=== PATIENT | male | born 1950 | race Caucasian/White ===

== ENCOUNTER 2021-12-12 15:42 | Emergency (ER) | payer MEDICARE, OTHER, SELFPAY ==
[2021-12-12 15:43] VITALS: BP 122/69; PULSE 74; RESP 16; TEMP 37; O2SAT 98; BMI 23.6
--- NOTE | 2021-12-12 16:17 | EX.ED.DYSGE1 ---
HPI History of Present Illness Chief Complaint: Confusion Narrative Narrative: 71-year-old male presenting with confusion. He is a cystic by his daughter who is a physician who states that she is currently caring for him at home. He has a history of hepatocellular carcinoma and sees Dr. Lopez. Patient had recent ablations to the liver and has acutely been decompensating. He is on immunotherapy and not on chemotherapy. Patient's daughter reports that he has been more confused and she is unsure if he is taking his lactulose. Is a history of high ammonia level at 120. At last check it was 56. Patient's daughter states that he has not had any history of trauma or falls. She states he seems confused and is walking around somewhat like a zombie. [facility] Medical History (Updated 12/12/21 @ 16:51 by Hannah Reece RN) Anasarca Ascites Cirrhosis Diabetes Hepatic encephalopathy Liver cancer Home Medications cholecalciferol (vitamin D3) [Vitamin D3] 5,000 unit PO DAILY 10/22/13 [History Last Taken Unknown] glimepiride 2 mg PO DAILY 10/22/13 [History Last Taken Unknown] empagliflozin [Jardiance] 25 mg PO DAILY 12/12/21 [History Last Taken Unknown] finasteride 5 mg PO DAILY 12/12/21 [History Last Taken Unknown] furosemide [Lasix] 40 mg PO DAILY 12/12/21 [History Last Taken Unknown] hydrocodone-acetaminophen [[place]] 1 tab PO BID PRN 12/12/21 [History Last Taken Unknown] lactulose 20 g PO BID 12/12/21 [History Last Taken Unknown] loperamide 2 mg PO TID 12/12/21 [History Last Taken Unknown] multivitamin 1 tab PO DAILY 12/12/21 [History Last Taken Unknown] omeprazole 40 mg PO DAILY 12/12/21 [History Last Taken Unknown] potassium chloride 20 meq PO DAILY 12/12/21 [History Last Taken Unknown] spironolactone [Aldactone] 100 mg PO DAILY 12/12/21 [History Last Taken Unknown] temazepam 15 mg PO QHS PRN 12/12/21 [History Last Taken Unknown] Allergy/AdvReac Type Severity Reaction Status Date / Time pentazocine lactate Allergy Shortness Verified 12/12/21 15:43 [From Jakob] of breath Social History Smoking Status: Never smoker ROS ROS ED Review of Systems ROS Unobtainable: due to encephalopathy EXAM Physical Exam Const Vital Signs: 12/12/21 15:43 12/12/21 16:36 12/12/21 18:14 Temperature 98.6 F Temperature Source Temporal Pulse Rate 74 65 70 Respiratory Rate 16 18 13 Blood Pressure 122/69 H 116/63 113/62 Blood Pressure Mean 86 80 79 Pulse Ox 98 99 97 Oxygen Delivery Method Room Air Room Air Room Air 12/12/21 19:07 Temperature 97.9 F Temperature Source Temporal Pulse Rate 75 Respiratory Rate 24 H Blood Pressure 110/64 Blood Pressure Mean 79 Pulse Ox 97 Oxygen Delivery Method Room Air Positive well nourished General Appearance ED: NAD; Negative for pallor HEENT Reports moist mucous membranes Negative for trauma Eyes PERRL General Eye ED: Negative for pale conjunctiva or scleral icterus Resp normal respiratory effort and clear to auscultation bilaterally Cardio regular rate and regular rhythm Neuro Sensorium / Orientation: alert Psych mental status grossly normal Skin no wounds and No skin turgor normal General Skin Exam: Negative for jaundice or pallor MDM MDM MDM Narrative Medical decision making narrative: 71-year-old male presenting with altered mental status. His daughter is concerned that he is not taking his lactulose. She has a prescription for this. I did obtain lab work and his CBC is within normal limits. Renal function and electrolytes appear to be stable although he has slight prerenal azotemia. Total bilirubin is elevated at 2.80 however this is lower than his previous of 4.20. His other LFTs appear to be stable or decreasing. His ammonia level is 108.0 and last check of this was 12/07/2021 where it was 56. Patient is given a dose of lactulose here in the ED but initially it was unable to be given orally. On reevaluation the patient appears to be more alert and awake. His daughter is back in the room. We discussed lab work and treatment. She requests a dose of oral lactulose to see if he can swallow and if he can take this he will be discharged home and she will care for him. This was given and the patient tolerated well. On reevaluation he appears to be more alert and awake. At this point she feels safe to take him home. Given return precautions. Impression: 1. Hepatic encephalopathy Lab Data Attestation: I reviewed the patient's lab results. Labs: Laboratory Results - last 24 hr 12/12/21 12/12/21 12/12/21 16:35 16:35 16:35 WBC 5.4 RBC 5.49 Hgb 17.4 H Hct 51.9 MCV 94.5 H MCH 31.7 MCHC 33.5 RDW Std Deviation 58.8 H RDW Coeff of Breana 17.0 H Plt Count 137 L MPV 9.9 Immature Gran % (Auto) 0.200 Neut % (Auto) 74.1 H Lymph % (Auto) 10.1 L [place] % (Auto) 11.2 H Eos % (Auto) 3.5 Baso % (Auto) 0.9 Absolute Neuts (auto) 4.0 Absolute Lymphs (auto) 0.55 L Nucleated RBC % 0 Differential Comment SCANNED Sodium 137 Potassium 4.5 Chloride 100 Carbon Dioxide 31.0 Anion Gap 6 BUN 28 H Creatinine 1.17 Estim Creat Clear Calc 61.72 Est GFR (MDRD) Af Amer 79 Est GFR (MDRD) Non-Af 65 BUN/Creatinine Ratio 23.9 H Glucose 154 H Calcium 8.7 Total Bilirubin 2.80 H Direct Bilirubin 1.60 H AST 66 H ALT 57 Alkaline Phosphatase 352 H Ammonia 108.0 H Total Protein 7.3 Albumin 2.5 L Globulin 4.8 H Lipase 225 Urine Color Urine Clarity Urine pH Ur Specific [place] Urine Protein Urine Glucose (UA) Urine Ketones Urine Occult Blood Urine Nitrite Urine Bilirubin Urine Urobilinogen Ur Leukocyte Esterase Urine RBC Urine WBC Ur Squamous Epith Cells Urine Bacteria Urine Mucus 12/12/21 17:50 WBC RBC Hgb Hct MCV MCH MCHC RDW Std Deviation RDW Coeff of Breana Plt Count MPV Immature Gran % (Auto) Neut % (Auto) Lymph % (Auto) [place] % (Auto) Eos % (Auto) Baso % (Auto) Absolute Neuts (auto) Absolute Lymphs (auto) Nucleated RBC % Differential Comment Sodium Potassium Chloride Carbon Dioxide Anion Gap BUN Creatinine Estim Creat Clear Calc Est GFR (MDRD) Af Amer Est GFR (MDRD) Non-Af BUN/Creatinine Ratio Glucose Calcium Total Bilirubin Direct Bilirubin AST ALT Alkaline Phosphatase Ammonia Total Protein Albumin Globulin Lipase Urine Color Yellow Urine Clarity Clear Urine pH 6.5 Ur Specific [place] 1.010 Urine Protein Negative Urine Glucose (UA) Normal Urine Ketones 5 H Urine Occult Blood 25 H Urine Nitrite Negative Urine Bilirubin Negative Urine Urobilinogen 4 H Ur Leukocyte Esterase Negative Urine RBC 0 SEEN Urine WBC 0 SEEN Ur Squamous Epith Cells 0 SEEN Urine Bacteria 0 SEEN Urine Mucus 0 SEEN Discharge Plan Triage Chief Complaint: Confusion ED Provider: Antonio Marion Dx/Rx/DC Orders Instructions: Hepatic Encephalopathy Prescriptions: No Action glimepiride 4 MG tablet 2 mg PO DAILY RF: 0 cholecalciferol (vitamin D3) [Vitamin D3] 2,000 UNIT tablet 5,000 unit PO DAILY RF: 0 multivitamin Tablet 1 tab PO DAILY RF: 0 furosemide [Lasix] 40 mg Tablet 40 mg PO DAILY RF: 0 lactulose 10 gram/15 mL Syrup 20 g PO BID RF: 0 loperamide 2 mg Capsule 2 mg PO TID RF: 0 hydrocodone-acetaminophen [[place]] 5-325 mg Tablet 1 tab PO BID PRN (Reason: Pain) RF: 0 spironolactone [Aldactone] 100 mg Tablet 100 mg PO DAILY RF: 0 omeprazole 40 mg Capsule,Delayed Release(Dr/Ec) 40 mg PO DAILY RF: 0 temazepam 15 mg Capsule 15 mg PO QHS PRN (Reason: Sleep) RF: 0 finasteride 5 mg tablet 5 mg PO DAILY RF: 0 potassium chloride 20 mEq Tablet Extended Release 20 meq PO DAILY RF: 0 Jardiance 25 mg Tablet 25 mg PO DAILY RF: 0 Primary Care Provider: Chandana Kenny Referrals: Jaswinder Lopez DO [STAFF PHYSICIAN] - As Needed Chandana Kenny DO [Primary Care Provider] - Disposition Disposition: Home, Self Care Discharge Date/Time: 12/12/21 19:54
[2021-12-12 16:36] VITALS: BP 116/63; PULSE 65; RESP 18; O2SAT 99
[2021-12-12 16:49] LABS: Absolute Lymphocyte Count 0.55 X10^3/uL (0.83-4.51); Basophil# 0.05 X10^3/uL; Basophil% 0.9 % (0-1); Eosinophil# 0.19 X10^3/uL; Eosinophils% 3.5 % (0-5); Hematocrit 51.9 % (40-54); Hemoglobin 17.4 g/dL (13.0-16.5); Lymphocyte # 0.55 X10^3/ul (0.83-4.51); Lymphocyte % 10.1 % (19-41); Mean Corp Hgb Conc 33.5 g/dL (32-36); Mean Corpuscular Hgb 31.7 pg (27.0-32.0); Mean Corpuscular Volume 94.5 fL (80-94); Mean Platelet Vol. 9.9 fl (6.2-12.0); Monocyte# 0.61 X10^3/uL; Monocyte% 11.2 % (0-10); NRBC Flagged by Analyzer 0 % (0-5); Neutrophil # 4.03 X10^3/uL (2.7-7.7); Neutrophil % 74.1 % (47-70); POSITIVE DIFFERENTIAL YES; Platelet Count 137 K/mm3 (150-450); RBC Distribution Width SD 58.8 fl (35.1-43.9); Red Blood Count 5.49 M/mm3 (4.6-6.2); White Blood Count 5.4 K/mm3 (4.4-11.0)
[2021-12-12 16:51] LABS: Differential Indicated SCAN CRITERIA MET
[2021-12-12 17:00] LABS: AST(SGOT) 66 U/L (15-37); Alanine Aminotransfer ALT/SGPT 57 U/L (16-61); Albumin, Serum 2.5 g/dL (3.2-5.0); Alkaline Phosphatase 352 U/L (45-117); Anion Gap 6 (5-15); BUN 28 mg/dL (7-18); BUN/Creat Ratio 23.9 RATIO (10-20); Calcium,Total 8.7 mg/dL (8.5-10.1); Chloride 100 mmol/L (98-107); Creatinine, Serum 1.17 mg/dL (0.70-1.30); EST Glomerular Filtration Rate 65 mL/min (>60); Est Glom Filt Rate - Afr Amer 79 mL/min (>60); Estimated Creatinine Clearance 61.72 ml/min; Globulin 4.8 g/dL (2.2-4.2); Glucose 154 mg/dL (74-106); Lipase 225 U/L (73-393); Potassium 4.5 mmol/L (3.5-5.1); Protein, Total 7.3 g/dL (6.4-8.2); Sodium Level 137 mmol/L (136-145)
[2021-12-12 17:10] LABS: Differential Comment SCANNED
[2021-12-12] MEDS: 0.9% Normal Saline 1,000 ML 999 ML IV (17:57)
[2021-12-12 17:58] LABS: Bacteria 0 SEEN /hpf (None Seen); Mucous, Urine 0 SEEN /hpf (<or=2+); Red Blood Cells-Urine 0 SEEN /hpf (0-5); Squamous Epithelial Cells - UA 0 SEEN /hpf (0-5); White Blood Cells 0 SEEN /hpf (0-5)
--- NOTE | 2021-12-12 18:05 | ED.RN ---
RN AT THE BEDSIDE TO CATH PATIENT. PT HARDLY WITHDREW FROM PAIN RELATED TO STRAIGHT CATH PROCEDURE. PT HAS LACTULOSE ORDERED TO BE GIVEN ORALLY. RN INFORMED DR GRAHAM THAT PT WILL BE UNABLE TO TAKE MEDICATION ORALLY. DR GRAHAM AGREEABLE TO ADMINISTER LACTULOSE RECTALLY.
[2021-12-12] MEDS: Lactulose 20 GM/30 ML UDC PO ×2 (18:06→19:34)
[2021-12-12 18:11] LABS: Color, Urine Yellow (Yellow); Glucose, Dipstick Normal (Normal); Ketone-Dipstick 5 mg/dl (Negative); Leukocyte Esterase-Dipstick Negative /ul (Negative); Nitrite-Dipstick Negative (Negative); Occult Blood-Urine 25 /ul (Negative); Protein-Dipstick Negative (Negative); Urine Bilirubin Dipstick Negative (Negative); Urine Clarity Clear (Clear); Urine Urobilinogen 4 mg/dl (Normal); Urine pH 6.5 (5.0 - 8.0)
[2021-12-12 18:14] VITALS: BP 113/62; PULSE 70; RESP 13; O2SAT 97
[2021-12-12 19:07] VITALS: BP 110/64; PULSE 75; RESP 24; TEMP 36.6; O2SAT 97
[2021-12-12 19:48] VITALS: BP 113/65; PULSE 74; RESP 17
== END 2021-12-12 19:54 | disposition home or self-care (01) ==
PROVIDERS: Emergency Provider Student in an Organized Health Care Education/Training Program; PCP Family Medicine; Visit Provider Student in an Organized Health Care Education/Training Program
DX: K72.90 Hepatic failure, unspecified without coma (principal); C22.0 Liver cell carcinoma; E11.9 Type 2 diabetes mellitus without complications; Z79.84 Long term (current) use of oral hypoglycemic drugs; Z79.899 Other long term (current) drug therapy
CPT/HCPCS: 80048; 80076; 81001; 82140; 83690; 85025; 96360; 99284; J7030; A4216

== ENCOUNTER 2022-01-28 10:47 | Inpatient (IN) | payer MEDICARE, OTHER, SELFPAY ==
[2022-01-28] VITALS (12 sets, daily range): BP systolic 104–124; BP diastolic 50–63; PULSE 61–76; RESP 18–24; TEMP 36–36.9; O2SAT 95–98; BMI 24.4
--- NOTE | 2022-01-28 11:12 | EKG12_ITS ---
Test Reason : NAUSEA Blood Pressure : / mmHG Vent. Rate : 064 BPM Atrial Rate : 064 BPM P-R Int : 272 ms QRS Dur : 088 ms QT Int : 454 ms P-R-T Axes : 076 -55 050 degrees QTc Int : 468 ms Sinus rhythm with sinus arrhythmia with 1st degree A-V block Left axis deviation Inferior infarct , age undetermined Abnormal ECG Confirmed by MAC MONDRAGON, PATRICE ([id number]), editorial project manager BINA VIDALES ([id number]) on 01/31/2022 1:53:18 PM Referred By: CHRISTINA Confirmed By:PATRICE WATTS MD
--- NOTE | 2022-01-28 11:13 | EDS_ITS ---
HPI History of Present Illness Chief Complaint: Abd Pain Narrative Narrative: Patient has a history of hepatocellular carcinoma that is multifocal, he had 2 chemoembolization procedures at [facility] and after the second 1 he developed cirrhosis and has been on immunotherapy chemo since then. His bilirubin usually is around 2-4, today it was 21 and systolic blood pressure was 90 in the office with a white blood count of 15,000. He has been feeling very malaised and weak in the past week, he has had vomiting and diarrhea and intermittent right lower quadrant abdominal pain, and his oncologist sent him in out of concern for sepsis, SBP, and/or dehydration. He is not having abdominal pain at this time of evaluation. He states he has had a cough recently but no dyspnea. [facility] Medical History Anasarca Ascites Cirrhosis Diabetes Hepatic encephalopathy Liver cancer Home Medications finasteride 5 mg PO DAILY 12/12/21 [History Last Taken 01/27/22] furosemide [Lasix] 40 mg PO DAILY 12/12/21 [History Last Taken 01/27/22] hydrocodone-acetaminophen [[place]] 1 tab PO BID PRN 12/12/21 [History Last Taken 01/27/22] loperamide 2 mg PO TID 12/12/21 [History Last Taken 01/27/22] omeprazole 40 mg PO DAILY 12/12/21 [History Last Taken 01/27/22] potassium chloride 20 meq PO DAILY 12/12/21 [History Last Taken 01/27/22] spironolactone [Aldactone] 100 mg PO DAILY 12/12/21 [History Last Taken 01/27/22] temazepam 15 mg PO QHS PRN 12/12/21 [History Last Taken 01/27/22] lactulose 20 g PO BID 01/28/22 [History Last Taken 01/27/22] Allergy/AdvReac Type Severity Reaction Status Date / Time pentazocine lactate Allergy Shortness Verified 01/28/22 10:49 [From Jakob] of breath Social History Smoking Status: Former smoker ROS ROS ED Constitutional Constitutional ED: Reports fatigue and malaise; Denies chills or fever(s) Eyes Eyes: Denies change in vision or diplopia ENT ENT ED: Denies rhinorrhea or sore throat Cardiovascular Cardiovascular: Reports pedal edema and other Details: Lower extremity swelling no worse than usual ; Denies chest pain or palpitations Respiratory/Chest Respiratory/Chest: Reports cough; Denies dyspnea Gastrointestinal Gastrointestinal: Reports as per HPI, abdominal pain, diarrhea, nausea and vomiting; Denies hematemesis, hematochezia or melena Genitourinary Genitourinary ED: Denies dysuria or hematuria Musculoskeletal Musculoskeletal: Denies back pain or neck pain Integumentary Denies abscess or rash Neurologic Neurologic: Reports other Details: Occasionally confused, this has been since he has had cirrhosis, no different than usual in this past week ; Denies he adache(s), paresthesias or weakness Psychiatric Psychiatric: Denies anxiety or suicidal thoughts EXAM Physical Exam Const Vital Signs: 01/28/22 10:48 01/28/22 10:55 01/28/22 12:26 Temperature 96.8 F L 96.8 F L 97.8 F Temperature Source Temporal Temporal Oral Pulse Rate 76 76 Respiratory Rate 18 18 Blood Pressure 104/54 L 104/54 L Blood Pressure Mean 70 70 Pulse Ox 96 96 97 Oxygen Delivery Method Room Air Room Air Room Air 01/28/22 12:39 01/28/22 14:28 01/28/22 14:49 Temperature 97.8 F 97.6 F L 97.6 F L Temperature Source Oral Temporal Temporal Pulse Rate 61 68 70 Respiratory Rate 18 18 24 H Blood Pressure 107/50 L 118/63 124/58 H Blood Pressure Mean 69 81 80 Pulse Ox 95 96 98 Oxygen Delivery Method Room Air Room Air Room Air 01/28/22 15:01 Temperature 97.6 F L Temperature Source Temporal Pulse Rate 62 Respiratory Rate 19 H Blood Pressure 124/58 H Blood Pressure Mean 80 Pulse Ox 97 Oxygen Delivery Method Room Air Positive well nourished and well developed General Appearance ED: well developed and NAD HEENT Reports moist mucous membranes normocephalic and atraumatic Eyes PERRL and EOMs intact bilaterally General Eye ED: Yes scleral icterus Neck full ROM and supple Resp normal respiratory effort Resp Narrative: Inspiratory and expiratory wheezes right side more at the base. Occasional and expiratory wheeze on the left but for the most part clear. No rales or rhonchi. Cardio regular rate, regular rhythm and no murmurs GI non-tender GI Narrative: Mildly distended with a fluid wave, not tense. Benign otherwise. Auscultation: normoactive bowel sounds Palpation: soft Back/Spine no CVA tenderness General Back: other FROM Extremity normal to inspection General Extremety ED: Yes edema; Negative for pulses abnormal or tenderness General Extremity: edema bilateral lower extremity (Symmetric without calf tenderness) Details: mild; Negative for pulses abnormal Neuro oriented x3, CN's II-XII intact bilaterally and no sensory deficits noted Sensorium / Orientation: awake and alert Motor Exam: strength 5/5 throughout Skin no rashes or lesions noted and no wounds General Skin Exam: jaundice MDM MDM MDM Narrative Medical decision making narrative: Discussed pros and cons of paracentesis at the bedside under ultrasound guidance with he and significant other. All questions answered, he consents. He has had paracenteses in the past for withdrawing his ascites. Labs consistent with urinary tract infection, started on Rocephin 2 g after doing paracentesis see the procedure note. cell count on that fluid is pending at this time. Will admit. Discussed with hospitalist who is requesting CT imaging of the abdomen/pelvis at this time, that is obtained and it showed nothing unexpected given his history. Lab Data Attestation: I reviewed the patient's lab results. Labs: Laboratory Results - last 24 hr 01/28/22 01/28/22 01/28/22 11:25 11:25 11:25 WBC 14.3 H RBC 4.93 Hgb 15.4 Hct 44.8 MCV 90.9 MCH 31.2 MCHC 34.4 RDW Std Deviation 58.7 H RDW Coeff of Breana 18.0 H Plt Count 180 MPV 9.8 Immature Gran % (Auto) 0.600 Neut % (Auto) 85.5 H Lymph % (Auto) 3.6 L [place] % (Auto) 9.3 Eos % (Auto) 0.6 Baso % (Auto) 0.4 Absolute Neuts (auto) 12.2 H Absolute Lymphs (auto) 0.52 L Nucleated RBC % 0 Differential Comment Platelet Estimate ADEQUATE RBC Morphology NORM C+C PT 23.7 H INR 2.2 APTT 45.9 H Sodium 127 L Potassium 4.2 Chloride 92 L Carbon Dioxide 25.0 Anion Gap 10 BUN 35 H Creatinine 1.43 H Estim Creat Clear Calc 50.50 Est GFR (MDRD) Af Amer 62 Est GFR (MDRD) Non-Af 51 L BUN/Creatinine Ratio 24.5 H Glucose 107 H Lactic Acid Calcium 7.6 L Total Bilirubin 21.50 H* AST 133 H ALT 82 H Alkaline Phosphatase 299 H Ammonia Troponin I High Sens 5 Total Protein 6.1 L Albumin 1.7 L Globulin 4.4 H Albumin/Globulin Ratio 0.4 L Urine Color Urine Clarity Urine pH Ur Specific [place] Urine Protein Urine Glucose (UA) Urine Ketones Urine Occult Blood Urine Nitrite Urine Bilirubin Urine Urobilinogen Ur Leukocyte Esterase Urine RBC Urine WBC Ur Squamous Epith Cells Urine Bacteria Urine Mucus 01/28/22 01/28/22 01/28/22 11:25 11:25 12:18 WBC RBC Hgb Hct MCV MCH MCHC RDW Std Deviation RDW Coeff of Breana Plt Count MPV Immature Gran % (Auto) Neut % (Auto) Lymph % (Auto) [place] % (Auto) Eos % (Auto) Baso % (Auto) Absolute Neuts (auto) Absolute Lymphs (auto) Nucleated RBC % Differential Comment Platelet Estimate RBC Morphology PT INR APTT Sodium Potassium Chloride Carbon Dioxide Anion Gap BUN Creatinine Estim Creat Clear Calc Est GFR (MDRD) Af Amer Est GFR (MDRD) Non-Af BUN/Creatinine Ratio Glucose Lactic Acid 3.0 H* Calcium Total Bilirubin AST ALT Alkaline Phosphatase Ammonia 18.0 Troponin I High Sens Total Protein Albumin Globulin Albumin/Globulin Ratio Urine Color [place] Urine Clarity Sl. Cloudy Urine pH 6.0 Ur Specific [place] 1.015 Urine Protein 30 H Urine Glucose (UA) Normal Urine Ketones 5 H Urine Occult Blood 25 H Urine Nitrite Positive H Urine Bilirubin 6 H Urine Urobilinogen 8 H Ur Leukocyte Esterase 100 H Urine RBC 0-5 SEEN Urine WBC 5-10 SEEN Ur Squamous Epith Cells 10-25 SEEN Urine Bacteria 4+ Urine Mucus 0 SEEN 01/28/22 15:49 WBC RBC Hgb Hct MCV MCH MCHC RDW Std Deviation RDW Coeff of Breana Plt Count MPV Immature Gran % (Auto) Neut % (Auto) Lymph % (Auto) [place] % (Auto) Eos % (Auto) Baso % (Auto) Absolute Neuts (auto) Absolute Lymphs (auto) Nucleated RBC % Differential Comment Platelet Estimate RBC Morphology PT INR APTT Sodium Potassium Chloride Carbon Dioxide Anion Gap BUN Creatinine Estim Creat Clear Calc Est GFR (MDRD) Af Amer Est GFR (MDRD) Non-Af BUN/Creatinine Ratio Glucose Lactic Acid 2.8 H* Calcium Total Bilirubin AST ALT Alkaline Phosphatase Ammonia Troponin I High Sens Total Protein Albumin Globulin Albumin/Globulin Ratio Urine Color Urine Clarity Urine pH Ur Specific [place] Urine Protein Urine Glucose (UA) Urine Ketones Urine Occult Blood Urine Nitrite Urine Bilirubin Urine Urobilinogen Ur Leukocyte Esterase Urine RBC Urine WBC Ur Squamous Epith Cells Urine Bacteria Urine Mucus Radiography Diagnostic Testing: Clinical Impression(s) from Imaging Studies Chest X-Ray 01/28/22 11:20 IMPRESSION: No acute abnormality is seen. Electronically Signed: Jose Jerome MD at 11:56 EDT , Abdomen/Pelvis CT 01/28/22 14:44 IMPRESSION: Diffuse ascites. 1.2 cm x 2 cm pleural-based nodule in the lateral aspect of the left lower lobe with underlying atelectasis and/or scarring. Findings suggestive of cirrhosis of the liver with possible mass in the left lobe. Surgical anastomosis is seen in the region of the ascending colon. Underlying mass cannot be excluded. Electronically Signed: Jose Jerome MD at 15:35 EDT , Rhythm Strip Rhythm Strip: Sinus Rhythm Rate: 65 Ectopy: None EKG Initial EKG: Attestation: I personally reviewed and interpreted this EKG as follows: Interpretation: Sinus Rhythm, No Acute Injury Pattern and AV Block (1st deg) Comments: Anteroseptal inferior Q waves Prior: No Prior Procedures Other Procedures Procedure(s): Paracentesis: After informed consent, the abdomen was ultrasounded by myself to look for a pocket of fluid away from bowel, initially the best area appeared to be the left upper quadrant, so I prepped this with Betadine and placed 1 cc of local lidocaine with epinephrine 1%, however on reevaluation with ultrasound his colon appears to be in the way, and much closer to the peritoneum than it appeared to be prior so I did not attempt paracentesis in this area. Rather with further exploration with the ultrasound probe, even with changing the patient's position it appeared to be the best area was in the left lower quadrant. After local anesthetizing and prepped and draped in a sterile fashion with Betadine, sterile gloves were used, and I was able to place a 20-gauge IV catheter under ultrasound guidance into the pocket of fluid, upon withdrawing the needle there was clear yellow nonbloody fluid emanating from the catheter, I aspirated about 8 cc of this until it stopped. Placed a bandage, tolerated well no complications, fluid sent to lab for analysis. Discharge Plan Dx/Rx/DC Orders Clinical Impression: Sepsis, Acute UTI, LINDA (acute kidney injury), Hyperbilirubinemia, Hepatocellular carcinoma, Nausea vomiting and diarrhea Disposition [facility]position: [facility] Discharge Date/Time: 01/28/22 16:16
--- NOTE | 2022-01-28 11:20 | RAD_ITS ---
STUDY: X-RAY CHEST REASON FOR EXAM: Male, 71 years old. Cough TECHNIQUE: Single AP portable view of the chest. COMPARISON: None. FINDINGS: The lungs are clear and expanded. There is no demonstrated pleural abnormality. Normal size heart. Normal mediastinum and marlin. Normal visualized pulmonary arteries. There is atherosclerotic tortuosity of the aortic arch and descending thoracic aorta. There are diffuse degenerative changes of the visualized thoracic spine. Normal visualized ribs, clavicles, and shoulders. There is no demonstrated abnormality of the visualized soft tissue structures of the upper abdomen. RAD/Chest 1 View (Portable) IMPRESSION: No acute abnormality is seen. Electronically Signed: Jose Jerome MD at 11:56 EDT ,
[2022-01-28 11:38] LABS: Absolute Lymphocyte Count 0.52 X10^3/uL (0.83-4.51); Absolute Neutrophil Count 12.2 X10^3/uL (2.0-7.7); Basophil# 0.06 X10^3/uL; Basophil% 0.4 % (0-1); Eosinophil# 0.09 X10^3/uL; Eosinophils% 0.6 % (0-5); Hematocrit 44.8 % (40-54); Hemoglobin 15.4 g/dL (13.0-16.5); Lymphocyte # 0.52 X10^3/ul (0.83-4.51); Lymphocyte % 3.6 % (19-41); Mean Corp Hgb Conc 34.4 g/dL (32-36); Mean Corpuscular Hgb 31.2 pg (27.0-32.0); Mean Corpuscular Volume 90.9 fL (80-94); Mean Platelet Vol. 9.8 fl (6.2-12.0); Monocyte# 1.32 X10^3/uL; Monocyte% 9.3 % (0-10); NRBC Flagged by Analyzer 0 % (0-5); Neutrophil # 12.17 X10^3/uL (2.7-7.7); Neutrophil % 85.5 % (47-70); POSITIVE DIFFERENTIAL YES; Platelet Count 180 K/mm3 (150-450); RBC Distribution Width SD 58.7 fl (35.1-43.9); Red Blood Count 4.93 M/mm3 (4.6-6.2); White Blood Count 14.3 K/mm3 (4.4-11.0)
[2022-01-28 11:40] LABS: Differential Indicated SCAN CRITERIA MET
[2022-01-28 11:47] LABS: International Normalized Ratio 2.2; Prothrombin Time (Protime)PT. 23.7 SECONDS (11.7-14.9)
[2022-01-28 11:48] LABS: Partial Thromboplast Time 45.9 Seconds (24.1-36.2)
[2022-01-28 12:10] LABS: Platelet Estimate ADEQUATE (ADEQ)
[2022-01-28 12:11] LABS: Red Cell Morphology NORM C+C NORMAL (NORM C&C)
[2022-01-28 12:18] LABS: ALB/GLOB Ratio 0.4 RATIO (0.9-2.4); AST(SGOT) 133 U/L (15-37); Alanine Aminotransfer ALT/SGPT 82 U/L (16-61); Albumin, Serum 1.7 g/dL (3.2-5.0); Alkaline Phosphatase 299 U/L (45-117); Anion Gap 10 (5-15); BUN 35 mg/dL (7-18); BUN/Creat Ratio 24.5 RATIO (10-20); Calcium,Total 7.6 mg/dL (8.5-10.1); Chloride 92 mmol/L (98-107); Creatinine, Serum 1.43 mg/dL (0.70-1.30); EST Glomerular Filtration Rate 51 mL/min (>60); Est Glom Filt Rate - Afr Amer 62 mL/min (>60); Globulin 4.4 g/dL (2.2-4.2); Glucose 107 mg/dL (74-106); Potassium 4.2 mmol/L (3.5-5.1); Protein, Total 6.1 g/dL (6.4-8.2); Sodium Level 127 mmol/L (136-145); Troponin-I HS 5 pg/mL (3.0-78.0)
[2022-01-28] MEDS: Ondansetron 4 MG/2 ML Vial IV (12:29)
[2022-01-28 12:46] LABS: Mucous, Urine 0 SEEN /hpf (<or=2+)
[2022-01-28 12:52] LABS: Color, Urine Amber (Yellow); Glucose, Dipstick Normal (Normal); Ketone-Dipstick 5 mg/dl (Negative); Leukocyte Esterase-Dipstick 100 /ul (Negative); Nitrite-Dipstick Positive (Negative); Occult Blood-Urine 25 /ul (Negative); Protein-Dipstick 30 mg/dl (Negative); Specific Gravity, Urine 1.015 (1.002-1.030); Urine Bilirubin Dipstick 6 mg/dL (Negative); Urine Clarity Sl. Cloudy (Clear); Urine Urobilinogen 8 mg/dl (Normal)
[2022-01-28 13:11] LABS: Squamous Epithelial Cells - UA 10-25 SEEN /hpf (0-5)
[2022-01-28 13:12] LABS: Bacteria 4+ /hpf (None Seen); Red Blood Cells-Urine 0-5 SEEN /hpf (0-5); White Blood Cells 5-10 SEEN /hpf (0-5)
--- NOTE | 2022-01-28 14:42 | HP.PCM.HOS_ITS ---
HPI - General General Date of Admission: 01/28/22 HPI Narrative MAKENZIE COLLINS, is a 71 M who presents via the ED with a complaitn of weakness and lethargy, as well as elevated white cell count and hypotension. Patient has a history of hepatocellular carcinoma and is undergoing immunotherapy. He says he started feeling weak and lethargic 4 days prior to admission, and started having nausea, vomiting and diarrhea subsequently. He went to see his oncologist today and his BP was in the 90s systolic. His wbc was also elevated at 15. He was therefore sent to the ER due to concerns about infection. Vitals in the ED at time of review were blood pressure of 117/57, pulse rate of 65, respiratory rate of 18 and temperature of 99.4 Fahrenheit. Saturating at 97% on room air. CBC showed WBC of 14.3 and hemoglobin of 15.4 and platelets of 180. INR was 2.2. Chemistry shows sodium of 127 and bicarb of 25 with creatinine of 1.43. Lactic acid was 3 and total bilirubin was 21.5. AST and ALT were mildly elevated at 153 and 82 respectively and ALP was 299. Urinalysis showed evidence of UTI with 100 leukocyte esterase and positive nitrites and 4+ bacteria. CT of the abdomen and pelvis showed diffuse ascites with 1.2 cm x 2 cm pleural-based nodule in the lateral aspect of the left lower lobe with underlying atelectasis and/or scarring with cirrhosis of the liver. He has been admitted to be managed for UTI as well as hyperbilirubinemia in the setting of history of liver cancer. [facility] Medical History Anasarca Ascites Cirrhosis Diabetes Hepatic encephalopathy Liver cancer Home Medications finasteride 5 mg PO DAILY 12/12/21 [History Last Taken 01/27/22] furosemide [Lasix] 40 mg PO DAILY 12/12/21 [History Last Taken 01/27/22] hydrocodone-acetaminophen [[place]] 1 tab PO BID PRN 12/12/21 [History Last Taken 01/27/22] loperamide 2 mg PO TID 12/12/21 [History Last Taken 01/27/22] omeprazole 40 mg PO DAILY 12/12/21 [History Last Taken 01/27/22] potassium chloride 20 meq PO DAILY 12/12/21 [History Last Taken 01/27/22] spironolactone [Aldactone] 100 mg PO DAILY 12/12/21 [History Last Taken 01/27/22] temazepam 15 mg PO QHS PRN 12/12/21 [History Last Taken 01/27/22] lactulose 20 g PO BID 01/28/22 [History Last Taken 01/27/22] Allergy/AdvReac Type Severity Reaction Status Date / Time pentazocine lactate Allergy Shortness Verified 01/28/22 10:49 [From Jakob] of breath Social History Smoking Status: Former smoker ROS Constitutional Constitutional: Reports fatigue, malaise and weakness; Denies anorexia, chills or night sweats Eyes Eyes: Denies change in vision ENT HEENT: Denies headache(s) or sore throat Cardiovascular Cardiovascular: Denies chest pain, dyspnea on exertion, lightheadedness, orthopn ea, palpitations, paroxysmal nocturnal dyspnea or rapid heart rate Respiratory/Chest Respiratory/Chest: Denies cough or excessive phlegm production Gastrointestinal Gastrointestinal: Reports abdominal pain, diarrhea, nausea and vomiting; Denies constipation, hematochezia, loose stools or melena Genitourinary Genitourinary: Denies burning urination or dysuria Neurologic Neurologic: Reports seizure-like activity; Denies confusion, dizziness, focal weakness or syncope Psychiatric Psychiatric: Denies anxiety or depression Endocrine Endocrinology: Denies change in body appearance Hematologic/Lymphatic Hematologic/Lymphatic: Denies anemia Allergic/Immunologic Allergic/Immunologic: Denies asthma Vital Signs Vital Signs Vital Signs: 01/28/22 10:48 01/28/22 10:55 01/28/22 12:26 Temperature 96.8 F L 96.8 F L 97.8 F Temperature Source Temporal Temporal Oral Pulse Rate 76 76 Respiratory Rate 18 18 Blood Pressure 104/54 L 104/54 L Blood Pressure Mean 70 70 Pulse Ox 96 96 97 Oxygen Delivery Method Room Air Room Air Room Air 01/28/22 12:39 01/28/22 14:28 Temperature 97.8 F 97.6 F L Temperature Source Oral Temporal Pulse Rate 61 68 Respiratory Rate 18 18 Blood Pressure 107/50 L 118/63 Blood Pressure Mean 69 81 Pulse Ox 95 96 Oxygen Delivery Method Room Air Room Air Weight Weight: 180 lb Body Mass Index (BMI) 24.4 Physical Exam Const alert, oriented x3 and no apparent distress General Appearance: cooperative HEENT head/scalp atraumatic, hearing grossly normal bilaterally and moist oral mucous membranes Eyes PERRL and EOMs intact bilaterally Eyes Narrative: deeply jaundiced sclera Neck no lymphadenopathy Resp Resp Narrative: diminished breath sounds bibasally, no wheezes or crackles. On room air. Cardio regular rate, regular rhythm, S1 normal heart sound, S2 normal heart sound and no murmurs GI GI Narrative: abdomen soft, nontender, has positive fluid thrill indicating ascites. Extremity normal to inspection, full ROM and no clubbing, cyanosis or edema Peripheral Pulses: Yes pulses 2+ throughout Skin no rashes or lesions noted Skin Narrative: deeply jaundiced Neuro oriented x3, CN's II-XII intact bilaterally and moves all extremities Sensorium / Orientation: awake and alert Psych affect normal Results Lab / Micro Data Result Diagrams: 01/28/22 11:25 01/28/22 11:25 Labs: Laboratory Results - last 24 hr 01/28/22 11:25: WBC 14.3 H, RBC 4.93, Hgb 15.4, Hct 44.8, MCV 90.9, MCH 31.2, MCHC 34.4, RDW Std Deviation 58.7 H, RDW Coeff of [place] 18.0 H, Plt Count 180, MPV 9.8, Immature Gran % (Auto) 0.600, Neut % (Auto) 85.5 H, Lymph % (Auto) 3.6 L, [place] % (Auto) 9.3, Eos % (Auto) 0.6, Baso % (Auto) 0.4, Absolute Neuts (auto) 12.2 H, Absolute Lymphs (auto) 0.52 L, Nucleated RBC % 0, Differential Comment , Platelet Estimate ADEQUATE, RBC Morphology NORM C+C 01/28/22 11:25: PT 23.7 H, INR 2.2, APTT 45.9 H 01/28/22 11:25: Sodium 127 L, Potassium 4.2, Chloride 92 L, Carbon Dioxide 25.0, Anion Gap 10, BUN 35 H, Creatinine 1.43 H, Estim Creat Clear Calc 50.50, Est GFR (MDRD) Af Amer 62, Est GFR (MDRD) Non-Af 51 L, BUN/Creatinine Ratio 24.5 H, Glucose 107 H, Calcium 7.6 L, Total Bilirubin 21.50 H*, AST 133 H, ALT 82 H, Alkaline Phosphatase 299 H, Troponin I High Sens 5, Total Protein 6.1 L, Albumin 1.7 L, Globulin 4.4 H, Albumin/Globulin Ratio 0.4 L 01/28/22 11:25: Lactic Acid 3.0 H* 01/28/22 11:25: Ammonia 18.0 01/28/22 12:18: Urine Color Dora, Urine Clarity Sl. Cloudy, Urine pH 6.0, Ur Specific [place] 1.015, Urine Protein 30 H, Urine Glucose (UA) Normal, Urine Ketones 5 H, Urine Occult Blood 25 H, Urine Nitrite Positive H, Urine Bilirubin 6 H, Urine Urobilinogen 8 H, Ur Leukocyte Esterase 100 H, Urine RBC 0-5 SEEN, Urine WBC 5-10 SEEN, Ur Squamous Epith Cells 10-25 SEEN, Urine Bacteria 4+, Urine Mucus 0 SEEN Micro: Microbiology 01/28/22 11:25 Nasal Secretion SARS-CoV-2 & FLU Antigen (Rapid) - Final Radiology Impression Chest X-Ray 01/28/22 11:20 IMPRESSION: No acute abnormality is seen. Electronically Signed: Jose Jerome MD at 11:56 EDT , Assessment & Plan Assessment/Plan (1) Acute UTI: (2) Sepsis: (3) Hyperbilirubinemia: (4) LINDA (acute kidney injury): PLAN: #Sepsis due to UTI and possible SBP * WBC is 14.3. His bilirubin is also markedly elevated which it was due to sepsis would be indicated of endorgan damage. * He also had a fever at home but has not had any here so far. * Admit to PCU with telemetry * Start patient on IV vancomycin and cefepime to give him broad coverage in light of his immunosuppression from liver cancer * Blood cultures and urine cultures obtained * Hydrate very gently with IV fluid at 75 cc/h * * #LINDA * Creatinine is 1.43 with a baseline of around 1.1. * Hydrate gently with IV fluids and trend * #Lactic acidosis: Likely due to sepsis as well as liver cancer. Be gently hydrated with IV fluids. #Severe hyperbilirubinemia and acute liver injury in the setting of liver cancer * Total bilirubin is 21. From EMR, last bilirubin November 2021 was 2.8. * CT of the abdomen and pelvis showed diffuse ascites which could also be con tributing to hyperbilirubinemia. There was no evidence of any obstruction. * Will consult gastroenterology. * trend liver enzymes * ammonia level was 18 * #History of hepatocellular carcinoma * diagnosed one year ago * undergoing immunotherapy with oncology * on lactulose * #Ascites in setting of liver cancer * CT of the abdomen showed diffuse ascites * ED doctor did a tap and send fluid sample to the lab to assess for SBP * Patient will need therapeutic paracentesis and this can be done on Monday when radiology is here. * Started on IV vancomycin and cefepime. * on furosemide and spironolactone; Hold due to LINDA * #BPH: on finasteride #GI prophylaxis: pantoprazole DVT prophylaxis; SCDs COde status: DNRCCA no intubation * Patient counseled extensively about different types of CODE STATUS including full code, DNR CCA and DNR CCA. Patient elects to be DNRCCA no intubation. * Total [id number] time 17 minutes. Charges/Coding Visit Charges Inpatient E&M: 12805 Init Hosp L3 Procedures Hospitalists Procedures: 02948 Advncd Care Plan 30 Min
--- NOTE | 2022-01-28 14:44 | CT_ITS ---
STUDY: CT ABDOMEN AND PELVIS WITHOUT CONTRAST REASON FOR EXAM: Male, 71 years old. Hyperbilirubinemia, hepatocellular carcinoma RADIATION DOSAGE (If Supplied By Facility): CTDIvol = ( 8.07 ) mGy, DLP = ( 463.60 ) mGycm TECHNIQUE: Transaxial images were obtained from the dome of the diaphragm to the symphysis pubis without oral contrast, and without intravenous contrast. Sagittal and coronal images were reconstructed. Individualized dose optimization techniques were used for this CT. COMPARISON: None. FINDINGS: There is a 1.2 cm x 2 cm pleural-based nodule in the lateral aspect of the left lower lobe. Increased markings are also seen at the left lung base suggestive of atelectasis and or scarring. Coronary artery calcification. Diffuse ascites. There is a diffuse contour abnormality of the liver consistent with cirrhotic changes. Heterogeneous appearance of the left lobe of the thyroid. An underlying mass lesion should BE excluded. Due to lack of IV contrast, assessment is limited. Normal gallbladder and extrahepatic biliary system. Normal spleen. Normal pancreas. Normal bilateral adrenal glands. There are small bilateral nonobstructive intrarenal calculi. There is a 2.3 cm left parapelvic cyst. There is a small hiatal hernia. Normal small intestine. Surgical clips and anastomosis is seen in the right lower quadrant. This is in the region of the ascending colon. A mass lesion within it cannot be excluded. The appendix is visualized and appears normal. There is scattered atherosclerotic calcification of the abdominal aorta, without a demonstrated aneurysm. Normal inferior vena cava. There is borderline retroperitoneal lymphadenopathy with enlarged nodes no greater than 10mm in the short axis diameter. Distended urinary bladder. Small bilateral inguinal hernias containing fat. There are diffuse degenerative changes of the visualized lumbar spine. CT/Abdomen/Pelvis without Cont IMPRESSION: Diffuse ascites. 1.2 cm x 2 cm pleural-based nodule in the lateral aspect of the left lower lobe with underlying atelectasis and/or scarring. Findings suggestive of cirrhosis of the liver with possible mass in the left lobe. Surgical anastomosis is seen in the region of the ascending colon. Underlying mass cannot be excluded. Electronically Signed: Jose Jerome MD at 15:35 EDT ,
[2022-01-28 15:33] LABS: Reflex Lactate? Y
[2022-01-28] MEDS: 0.9% Normal Saline 1,000 ML 999 ML IV (15:34)
[2022-01-28 15:39] LABS: Body Fluid Mononuclear WBC # 0.133 10^3/uL; Body Fluid Mononuclear WBC % 52.4 %; Body Fluid Polynuclear WBC # 0.121 10^3/uL; Body Fluid Polynuclear WBC % 47.6 %; Body Fluid Total Cells Counted 0.281 10^3/ul; White Blood Count/Body Fluid 0.254 10^3/uL
[2022-01-28 16:22] LABS: Appearance/Body Fluid CLEAR; Auto B Fluid Analyzer BKGD Ct COUNTS W/IN LIMITS (W/IN LIMITS); Color/Body Fluid YELLOW; Red Cell Count/Body Fluid 69 /mm3
[2022-01-28 16:24] LABS: Source- Body Fluid PERITONEAL FLUID
[2022-01-28 16:32] LABS: Lymphocytes 9 %; Monocytes 19 %; Neutrophil (Segs) 65 %
[2022-01-28 16:33] LABS: Body Fluid QC Type(s) BF1Q; Mesothelial Cells 7 %
[2022-01-28 16:34] LABS: Lactic Acid 2.8 mmol/L (0.4-1.9)
[2022-01-28] MEDS: 0.9% Normal Saline 1,000 ML 75 ML IV (16:49)
--- NOTE | 2022-01-28 18:17 | CON.PCM_ITS ---
Assessment & Plan Assessment/Plan (1) Sepsis: PLAN: The possible etiology of his increased white blood cell count is po ssible sepsis. I will draw an ESR CRP and a pro calcitonin level. Serum PCT level is a marker for the diagnosis of liver abscess and sepsis following TACE therapy among patients with primary liver cancer. A cutoff level of 5.1 ng/mL for PCT had high sensitivity and specificity in predicting liver abscess with sepsis. I would also add Zosyn to his vancomycin therapy due to his immunosuppression and current hepatocellular carcinoma status post treatment with TACE. (2) Hyperbilirubinemia: PLAN: The possible etiology of his hyperbilirubinemia is likely decompensated cirrhosis. I suspect this is why his PT and PTT are elevated along with his bilirubin. His meld is very high at 30. Typically he would be a transplant candidate with a meld that high. I will recommend Xifaxan 550mg twice a day and I will also start Mucomyst therapy. He should also take lactulose 30 cc once a day and check his ammonia level and his INR, PT and PTT 8- 12 hours. Guarded prognosis. Patient should likely seek a higher level of care as he may need a transplant in the future. (3) Hepatocellular carcinoma: PLAN: Status post TACE procedure with decompensated liver disease. (4) Nausea vomiting and diarrhea: PLAN: His diarrhea has resolved but he is still nauseous. I will give Zofran as the clearance is less from the liver and more to the kidney. HPI Consult Data Date of Consult: 01/28/22 HPI Narrative HPI Narrative: MAKENZIE COLLINS, is a 71 M who presents with worsening lethargy and fatigue. He was told to come to the ER for evaluation by his oncologist. He has a past medical history of [place] associated cirrhosis complicated by hepatocellular carcinoma. He initially went on treatment and back in last March with chemoembolization followed by intra hepatic radiation treatments with fiducial markers. He has had several sessions of chemoembolization and his last one was 6 weeks ago. He is also currently undergoing immunotherapy for hepatocellular carcinoma. From what I can gather he has had a high meld and child Arevalo score prior to him undergoing treatment and the goal was to shrink the tumor for possible tr ansplantation in future as per the patient. He went to see his oncologist today and he was noted to be hypotensive and hit his labs drawn and it displayed a severe hyperbilirubinemia with increased white blood cell count. His white blood cell count last month was elevated at 2 and today was determined to be 21.5. There was only mild elevation in his AST and ALT to 153 and 82 respectively. He had a mild elevation in alkaline phosphatase at 299. 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 His weight has been decreasing. He denied any diarrhea at this time as it was present a week ago but has resolved. He has not received any blood transfusions recently he has no history of chronic hepatitis. He has no sick contacts recently. He has not started any new medicines. He does not take any Tylenol products. Urinalysis showed evidence of UTI with 100 leukocyte esterase and positive nitrites and 4+ bacteria. CT of the abdomen and pelvis showed diffuse ascites with 1.2 cm x 2 cm pleural-based nodule in the lateral aspect of the left lower lobe with underlying atelectasis and/or scarring with cirrhosis of the liver. [facility] Medical History Anasarca Ascites Cirrhosis Diabetes Hepatic encephalopathy Liver cancer Home Medications finasteride 5 mg PO DAILY 12/12/21 [History Last Taken 01/27/22] furosemide [Lasix] 40 mg PO DAILY 12/12/21 [History Last Taken 01/27/22] hydrocodone-acetaminophen [[place]] 1 tab PO BID PRN 12/12/21 [History Last Taken 01/27/22] loperamide 2 mg PO TID 12/12/21 [History Last Taken 01/27/22] omeprazole 40 mg PO DAILY 12/12/21 [History Last Taken 01/27/22] potassium chloride 20 meq PO DAILY 12/12/21 [History Last Taken 01/27/22] spironolactone [Aldactone] 100 mg PO DAILY 12/12/21 [History Last Taken 01/27/22] temazepam 15 mg PO QHS PRN 12/12/21 [History Last Taken 01/27/22] lactulose 20 g PO BID 01/28/22 [History Last Taken 01/27/22] Allergy/AdvReac Type Severity Reaction Status Date / Time pentazocine lactate Allergy Shortness Verified 01/28/22 10:49 [From Jakob] of breath Social History Smoking Status: Former smoker ROS Review of Systems ROS Unobtainable: other Constitutional Constitutional: Denies fatigue, fever(s), poor appetite, weight gain or weight loss ENT HEENT: Denies mouth lesions Cardiovascular Cardiovascular: Denies abdominal bloating, abdominal edema or abdominal pain Respiratory/Chest Respiratory/Chest: Denies change in mental status, change in phlegm color, chest congestion or chest tightness Gastrointestinal Gastrointestinal: Denies belching, bloating, change in bowel habits, change in stool character, chewing difficulty, coffee ground emesis, constipation, cramping, diarrhea, dyspepsia, dysphagia, early satiety, excessive flatus, fecal incontinence, heartburn, hematemesis, hematochezia, hemorrhoids, loose stools, melena, nausea, odynophagia, rectal bleeding, tenesmus, vomiting or weight changes Genitourinary Genitourinary: Denies abdominal discomfort, burning urination or itching Musculoskeletal Musculoskeletal: Reports as per HPI; Denies muscle weakness or myalgias Integumentary Integumentary: Denies jaundice Neurologic Neurologic: Denies lack of coordination or weakness Psychiatric Psychiatric: Denies confusion, depression, memory loss, mood swings, paranoia or suicidal ideation Endocrine Endocrinology: Denies systems reviewed and no addt'l complaints, except as documented Hematologic/Lymphatic Hematologic/Lymphatic: Denies anemia, easy bleeding, easy bruising or lymphade nopathy Allergic/Immunologic Allergic/Immunologic: Denies systems reviewed and no addt'l complaints, except as documented Physical Exam Const alert General Appearance: cooperative Orientation / Consciousness: oriented to person HEENT hearing grossly normal bilaterally Head and Scalp: normal to inspection Face and Sinus: face symmetric Nose: external nose normal Mouth: oral and palatal mucosa normal Eyes conjunctivae normal General Eye: normal appearance of both eyes Neck full ROM General: normal visual inspection Lymph Lymphatic: no lymphadenopathy noted Chest inspection of chest normal and palpation of chest normal Chest: symmetrical chest wall rise Resp normal respiratory effort Effort and Inspection: able to speak in complete sentences Cardio regular rate GI non-distended Percussion: normal to percussion Rectal Exam: deferred Neuro Speech: speech normal Gait (Neuro): normal gait Lab / Micro Data Result Diagrams: 01/28/22 11:25 01/28/22 11:25 Labs: Laboratory Results - last 24 hr 01/28/22 11:25: WBC 14.3 H, RBC 4.93, Hgb 15.4, Hct 44.8, MCV 90.9, MCH 31.2, MCHC 34.4, RDW Std Deviation 58.7 H, RDW Coeff of [place] 18.0 H, Plt Count 180, MPV 9.8, Immature Gran % (Auto) 0.600, Neut % (Auto) 85.5 H, Lymph % (Auto) 3.6 L, [place] % (Auto) 9.3, Eos % (Auto) 0.6, Baso % (Auto) 0.4, Absolute Neuts (auto) 12.2 H, Absolute Lymphs (auto) 0.52 L, Nucleated RBC % 0, Differential Comment , Platelet Estimate ADEQUATE, RBC Morphology NORM C+C 01/28/22 11:25: PT 23.7 H, INR 2.2, APTT 45.9 H 01/28/22 11:25: Sodium 127 L, Potassium 4.2, Chloride 92 L, Carbon Dioxide 25.0, Anion Gap 10, BUN 35 H, Creatinine 1.43 H, Estim Creat Clear Calc 50.50, Est GFR (MDRD) Af Amer 62, Est GFR (MDRD) Non-Af 51 L, BUN/Creatinine Ratio 24.5 H, Glucose 107 H, Calcium 7.6 L, Total Bilirubin 21.50 H*, AST 133 H, ALT 82 H, Alkaline Phosphatase 299 H, Troponin I High Sens 5, Total Protein 6.1 L, Albumin 1.7 L, Globulin 4.4 H, Albumin/Globulin Ratio 0.4 L 01/28/22 11:25: Lactic Acid 3.0 H* 01/28/22 11:25: Ammonia 18.0 01/28/22 12:18: Urine Color [place]ora, Urine Clarity Sl. Cloudy, Urine pH 6.0, Ur Specific [place] 1.015, Urine Protein 30 H, Urine Glucose (UA) Normal, Urine Ketones 5 H, Urine Occult Blood 25 H, Urine Nitrite Positive H, Urine Bilirubin 6 H, Urine Urobilinogen 8 H, Ur Leukocyte Esterase 100 H, Urine RBC 0-5 SEEN, Urine WBC 5-10 SEEN, Ur Squamous Epith Cells 10-25 SEEN, Urine Bacteria 4+, Urine Mucus 0 SEEN 01/28/22 15:49: Lactic Acid 2.8 H* 01/28/22 : Fluid Source PERITONEAL FLUID, Fluid Color YELLOW, Fluid Appearance CLEAR, Fluid WBC 0.254, Fluid RBC 69, Fluid Tot Cell Count 0.281, Fld Polynuclear WBCs # 0.121, Fld Polynuclear WBCs % 47.6, Fluid Mononuclear WBCs 0.133, Fld Mononuclear WBCs % 52.4, Fluid Neutrophils 65, Fluid Lymphocytes 9, Fluid Monocytes 19, Fld Mesothelial Cells 7, Fl Pathologist Comment May follow, Fluid Comment 2 SEE COMMENT Micro: Microbiology 01/28/22 11:25 Nasal Secretion SARS-CoV-2 & FLU Antigen (Rapid) - Final Rhythm Strip Rhythm Strip: Sinus Rhythm Rate: 65 Ectopy: None Radiology Impression Chest X-Ray 01/28/22 11:20 IMPRESSION: No acute abnormality is seen. Electronically Signed: Jose Jerome MD at 11:56 EDT , Abdomen/Pelvis CT 01/28/22 14:44 IMPRESSION: Diffuse ascites. 1.2 cm x 2 cm pleural-based nodule in the lateral aspect of the left lower lobe with underlying atelectasis and/or scarring. Findings suggestive of cirrhosis of the liver with possible mass in the left lobe. Surgical anastomosis is seen in the region of the ascending colon. Underlying mass cannot be excluded. Electronically Signed: Jose Jerome MD at 15:35 EDT , Charges/Coding Visit Charges Inpatient E&M: 96167 Init Hosp L3
--- NOTE | 2022-01-28 18:30 | NURSING ---
Reviewed charting with Scott Bingham RN
--- NOTE | 2022-01-28 18:52 | PCM.RX.CS ---
Consult Pharmacy has been consulted to manage selected antiobiotic: Vancomycin Type of Consult: New start Suspected Infection: Sepsis Labs: Sodium 127 mmol/L (136-145) L 01/28/22 11:25 Potassium 4.2 mmol/L (3.5-5.1) 01/28/22 11:25 Chloride 92 mmol/L (98-107) L 01/28/22 11:25 Carbon Dioxide 25.0 mmol/L (21.0-32.0) 01/28/22 11:25 Anion Gap 10 (5-15) 01/28/22 11:25 BUN 35 mg/dL (7-18) H 01/28/22 11:25 Creatinine 1.43 mg/dL (0.70-1.30) H 01/28/22 11:25 Est GFR (MDRD) Af Amer 62 mL/min (>60) 01/28/22 11:25 Est GFR (MDRD) Non-Af 51 mL/min (>60) L 01/28/22 11:25 BUN/Creatinine Ratio 24.5 RATIO (10-20) H 01/28/22 11:25 Glucose 107 mg/dL (74-106) H 01/28/22 11:25 Microbiology: Microbiology 01/28/22 11:25 Nasal Secretion SARS-CoV-2 & FLU Antigen (Rapid) - Final Goal Trough: 15-20 mcg/mL Pharmacy Plan for Drug Dosing: NEW START IV VANCOMYCIN Consulting Physician: Dr. Piedra Indication: Sepsis Goal Trough: 15-20 SrCr: 1.43 CrCl: 50 mL/min Comments: Loading dose 2g IV x1 ordered and administered 01/28/22 @4339 Vancomcyin Dose: 750mg IV Q12hr to start 01/29/22 @0600 Pending Level: 01/30/22 @0530, prior to 4th total dose per protocol Pharmacy Service will continue to monitor and adjust dosing as required.
[2022-01-28 19:04] LABS: LDH 200 U/L (87-241)
[2022-01-28 20:01] LABS: Erythrocyte Sedimentation Rate 55 mm/hr (0-20)
[2022-01-28 20:52] LABS: Procalcitonin 1.23 ng/mL (0.00-0.09)
[2022-01-28] MEDS: Lactulose 20 GM/30 ML UDC PO (22:47)
[2022-01-28] MEDS: Loperamide 2 MG Capsule PO (22:47)
[2022-01-28] MEDS: rifAXIMin 550 MG Tablet PO (22:58)
[2022-01-29] VITALS (9 sets, daily range): BP systolic 107–125; BP diastolic 54–63; PULSE 67–80; RESP 18; TEMP 36.3–36.9; O2SAT 96–97
[2022-01-29] MEDS: Ondansetron 4 MG/2 ML Vial IV (03:47)
[2022-01-29] MEDS: 0.9% Saline Lock 10 ML Syringe IV ×4 (03:47→13:30)
[2022-01-29 06:11] LABS: Absolute Lymphocyte Count 0.51 X10^3/uL (0.83-4.51); Absolute Neutrophil Count 12.5 X10^3/uL (2.0-7.7); Basophil# 0.09 X10^3/uL; Basophil% 0.6 % (0-1); Eosinophil# 0.13 X10^3/uL; Eosinophils% 0.9 % (0-5); Hematocrit 43.4 % (40-54); Hemoglobin 14.8 g/dL (13.0-16.5); Lymphocyte # 0.51 X10^3/ul (0.83-4.51); Lymphocyte % 3.5 % (19-41); Mean Corp Hgb Conc 34.1 g/dL (32-36); Mean Corpuscular Hgb 31.2 pg (27.0-32.0); Mean Corpuscular Volume 91.6 fL (80-94); Mean Platelet Vol. 9.8 fl (6.2-12.0); Monocyte% 8.9 % (0-10); NRBC Flagged by Analyzer 0 % (0-5); Neutrophil # 12.52 X10^3/uL (2.7-7.7); Neutrophil % 85.3 % (47-70); POSITIVE DIFFERENTIAL YES; Platelet Count 201 K/mm3 (150-450); RBC Distribution Width CV 18.1 % (11.6-14.6); RBC Distribution Width SD 60.7 fl (35.1-43.9); Red Blood Count 4.74 M/mm3 (4.6-6.2); White Blood Count 14.7 K/mm3 (4.4-11.0)
[2022-01-29 06:20] LABS: Differential Indicated SCAN CRITERIA MET
[2022-01-29] MEDS: Loperamide 2 MG Capsule PO ×3 (06:34→22:01)
[2022-01-29 06:45] LABS: Differential Comment SCANNED
[2022-01-29 07:05] LABS: ALB/GLOB Ratio 0.4 RATIO (0.9-2.4); AST(SGOT) 129 U/L (15-37); Alanine Aminotransfer ALT/SGPT 79 U/L (16-61); Albumin, Serum 1.6 g/dL (3.2-5.0); Alkaline Phosphatase 293 U/L (45-117); Anion Gap 9 (5-15); BUN 39 mg/dL (7-18); BUN/Creat Ratio 30.2 RATIO (10-20); Calcium,Total 7.8 mg/dL (8.5-10.1); Chloride 98 mmol/L (98-107); Creatinine, Serum 1.29 mg/dL (0.70-1.30); EST Glomerular Filtration Rate 58 mL/min (>60); Est Glom Filt Rate - Afr Amer 70 mL/min (>60); Estimated Creatinine Clearance 55.98 ml/min; Globulin 4.1 g/dL (2.2-4.2); Glucose 139 mg/dL (74-106); Potassium 4.4 mmol/L (3.5-5.1); Protein, Total 5.7 g/dL (6.4-8.2); Sodium Level 128 mmol/L (136-145)
[2022-01-29] MEDS: Morphine 2 MG/ML Syringe 1 MG IV (08:44)
[2022-01-29] MEDS: Potassium Chloride Oral Tablet 20 MEQ PO (08:45)
[2022-01-29] MEDS: rifAXIMin 550 MG Tablet PO ×2 (08:46→22:01)
[2022-01-29] MEDS: Finasteride 5 MG Tablet PO (08:46)
[2022-01-29] MEDS: Pantoprazole Sodium 40 MG Tablet PO (08:46)
--- NOTE | 2022-01-29 08:54 | MRI_ITS ---
STUDY: MR MRCP WITHOUT CONTRAST REASON FOR EXAM: Male, 71 years old. obstructive jaundice HCC and cirrhosis TECHNIQUE: Standard MRCP technique was utilized. 3-D reconstructions were performed. COMPARISON: CT 01/28/2022 FINDINGS: Gall Bladder: Multiple small hypointensities in dependent portion the gallbladder consistent with small stones. Cystic duct: Normal with no demonstrated fixed filling defect. Intrahepatic ducts: Normal visualized intrahepatic ducts with no demonstrated fixed filling defect, dilation or stricture. Common hepatic duct: Normal with no demonstrated fixed filling defect, dilation or stricture. Common bile duct: Normal with no demonstrated fixed filling defect, dilation or stricture. Pancreatic duct: Normal with no demonstrated fixed filling defect, dilation or stricture. MRI/MRCP Abdomen without Contrast IMPRESSION: Cholelithiasis. No MRCP evidence of choledocholithiasis. Electronically Signed: Wesly James MD at 13:09 EDT ,
--- NOTE | 2022-01-29 09:05 | PN_ITS ---
Subjective Subjective Patient feels about the same today as he did yesterday. Nausea is about the same. He is tolerating some diet. Objective Data Objective Data Vital Signs: Vital Signs Temp Pulse Resp BP Pulse Ox 97.9 F 74 18 125/63 H 97 01/29/22 04:25 01/29/22 07:00 01/29/22 04:25 01/29/22 04:25 01/29/22 04:25 Oxygen Delivery Method Room Air Weight: 180 lb 5.41 oz Body Mass Index (BMI) 24.4 Intake & Output: Intake and Output for Last 24 Hours 01/27/22 01/28/22 01/29/22 23:59 23:59 23:59 Intake Total 2191.25 / 2191.25 276.25 / 276.25 Balance 2191.25 / 2191.25 276.25 / 276.25 Lab / Micro Data Result Diagrams: 01/29/22 05:36 01/29/22 05:36 Labs: Laboratory Results - last 24 hr 01/28/22 11:25: WBC 14.3 H, RBC 4.93, Hgb 15.4, Hct 44.8, MCV 90.9, MCH 31.2, MCHC 34.4, RDW Std Deviation 58.7 H, RDW Coeff of Breana 18.0 H, Plt Count 180, MPV 9.8, Immature Gran % (Auto) 0.600, Neut % (Auto) 85.5 H, Lymph % (Auto) 3.6 L, [place] % (Auto) 9.3, Eos % (Auto) 0.6, Baso % (Auto) 0.4, Absolute Neuts (auto) 12.2 H, Absolute Lymphs (auto) 0.52 L, Nucleated RBC % 0, Differential Comment , Platelet Estimate ADEQUATE, RBC Morphology NORM C+C 01/28/22 11:25: PT 23.7 H, INR 2.2, APTT 45.9 H 01/28/22 11:25: Sodium 127 L, Potassium 4.2, Chloride 92 L, Carbon Dioxide 25.0, Anion Gap 10, BUN 35 H, Creatinine 1.43 H, Estim Creat Clear Calc 50.50, Est GFR (MDRD) Af Amer 62, Est GFR (MDRD) Non-Af 51 L, BUN/Creatinine Ratio 24.5 H, Glucose 107 H, Calcium 7.6 L, Total Bilirubin 21.50 H*, AST 133 H, ALT 82 H, Alkaline Phosphatase 299 H, Troponin I High Sens 5, Total Protein 6.1 L, Albumin 1.7 L, Globulin 4.4 H, Albumin/Globulin Ratio 0.4 L 01/28/22 11:25: Lactic Acid 3.0 H* 01/28/22 11:25: Ammonia 18.0 01/28/22 11:25: C-React Prot Ext Range 70.10 H 01/28/22 11:25: ESR 55 H 01/28/22 11:25: Lactate Dehydrogenase 200 01/28/22 12:18: Urine Color Dora, Urine Clarity Sl. Cloudy, Urine pH 6.0, Ur Specific [place] 1.015, Urine Protein 30 H, Urine Glucose (UA) Normal, Urine Ketones 5 H, Urine Occult Blood 25 H, Urine Nitrite Positive H, Urine Bilirubin 6 H, Urine Urobilinogen 8 H, Ur Leukocyte Esterase 100 H, Urine RBC 0-5 SEEN, Urine WBC 5-10 SEEN, Ur Squamous Epith Cells 10-25 SEEN, Urine Bacteria 4+, Urine Mucus 0 SEEN 01/28/22 15:49: Lactic Acid 2.8 H* 01/28/22 20:19: Procalcitonin 1.23 H 01/28/22 : Fluid Source PERITONEAL FLUID, Fluid Color YELLOW, Fluid Appearance CLEAR, Fluid WBC 0.254, Fluid RBC 69, Fluid Tot Cell Count 0.281, Fld Po lynuclear WBCs # 0.121, Fld Polynuclear WBCs % 47.6, Fluid Mononuclear WBCs 0.133, Fld Mononuclear WBCs % 52.4, Fluid Neutrophils 65, Fluid Lymphocytes 9, Fluid Monocytes 19, Fld Mesothelial Cells 7, Fl Pathologist Comment May follow, Fluid Comment 2 SEE COMMENT 01/29/22 05:36: WBC 14.7 H, RBC 4.74, Hgb 14.8, Hct 43.4, MCV 91.6, MCH 31.2, MCHC 34.1, RDW Std Deviation 60.7 H, RDW Coeff of [place]ana 18.1 H, Plt Count 201, MPV 9.8, Immature Gran % (Auto) 0.800, Neut % (Auto) 85.3 H, Lymph % (Auto) 3.5 L, [place] % (Auto) 8.9, Eos % (Auto) 0.9, Baso % (Auto) 0.6, Absolute Neuts (auto) 12.5 H, Absolute Lymphs (auto) 0.51 L, Nucleated RBC % 0, Differential Comment SCANNED 01/29/22 05:36: Sodium 128 L, Potassium 4.4, Chloride 98, Carbon Dioxide 21.0, Anion Gap 9, BUN 39 H, Creatinine 1.29, Estim Creat Clear Calc 55.98, Est GFR (MDRD) Af Amer 70, Est GFR (MDRD) Non-Af 58 L, BUN/Creatinine Ratio 30.2 H, Glucose 139 H, Calcium 7.8 L, Total Bilirubin 20.40 H*, AST 129 H, ALT 79 H, Alkaline Phosphatase 293 H, Total Protein 5.7 L, Albumin 1.6 L, Globulin 4.1, Albumin/Globulin Ratio 0.4 L Micro: Microbiology 01/28/22 11:25 Nasal Secretion SARS-CoV-2 & FLU Antigen (Rapid) - Final Radiography Diagnostic Testing: Radiology Impression Chest X-Ray 01/28/22 11:20 IMPRESSION: No acute abnormality is seen. Electronically Signed: Jose Jerome MD at 11:56 EDT , Abdomen/Pelvis CT 01/28/22 14:44 IMPRESSION: Diffuse ascites. 1.2 cm x 2 cm pleural-based nodule in the lateral aspect of the left lower lobe with underlying atelectasis and/or scarring. Findings suggestive of cirrhosis of the liver with possible mass in the left lobe. Surgical anastomosis is seen in the region of the ascending colon. Underlying mass cannot be excluded. Electronically Signed: Jose Jerome MD at 15:35 EDT , Rhythm Strip Rhythm Strip: Sinus Rhythm Rate: 65 Ectopy: None Physical Exam Const alert General Appearance: cooperative Orientation / Consciousness: oriented to person HEENT hearing grossly normal bilaterally Head and Scalp: normal to inspection Face and Sinus: face symmetric Nose: external nose normal Mouth: oral and palatal mucosa normal Eyes conjunctivae normal General Eye: normal appearance of both eyes Neck full ROM General: normal visual inspection Lymph Lymphatic: no lymphadenopathy noted Chest inspection of chest normal and palpation of chest normal Chest: symmetrical chest wall rise Resp normal respiratory effort Effort and Inspection: able to speak in complete sentences Cardio regular rate GI non-distended Percussion: normal to percussion Rectal Exam: deferred Neuro Speech: speech normal Gait (Neuro): normal gait Assessment & Plan Assessment/Plan (1) Hepatocellular carcinoma: PLAN: Status post TACE procedure and possible RFA with decompensated liver disease from unknown source at this time. The differential diagnosis could be local damage affecting the existing good liver tissue causing decompensated liver disease with massive increase in his meld and child Arevalo score. His bilirubin is about the same today along with his other liver enzymes. His albumin is dropping. With his INR increasing, bilirubin increasing, platelet count decreasing, sodium decreasing his meld is increasing. (2) Hyperbilirubinemia: PLAN: I will order an MRCP to make sure that there is no obstructive component to his elevation in bilirubin. There is some data on N-acetylcysteine in the form of a Mucomyst helping acute on chronic liver failure along with albumin administration to increased oncotic pressure therefore increasing perfusion to the liver helping acute liver failure. This has shown some success. However we do not know if this is local injury versus decompensated liver disease from acute hepatic necrosis and free radical decompensated liver disease. I will start Mucomyst and albumin. (3) LINDA (acute kidney injury): PLAN: His kidney labs are more consistent with prerenal azotemia versus hepatorenal syndrome or ATN. However it is on the differential diagnosis. If his kidney function does not improve with albumin then he may need midodrine and octreotide. Continue IV fluids. (4) Sepsis: PLAN: Sepsis from unknown cause at this time. I do agree with the second or third generation cephalosporin plus vancomycin. Charges/Coding Visit Charges Inpatient E&M: 39784 [facility] Hosp L3
[2022-01-29] MEDS: proMETHazine 25 MG/ML Syringe 12.5 MG IM (09:22)
[2022-01-29 10:11] LABS: International Normalized Ratio 2.3; Prothrombin Time (Protime)PT. 25.1 SECONDS (11.7-14.9)
[2022-01-29 10:12] LABS: Partial Thromboplast Time 47.2 Seconds (24.1-36.2)
--- NOTE | 2022-01-29 11:25 | NURSING ---
Pt off floor for for the last hour for MRI.
[2022-01-29] MEDS: Phytonadione (Vit K1) 5 MG TABLET PO (11:26)
[2022-01-29] MEDS: Acetylcysteine (Mucomyst Oral) 20% SOLN 1200 MG PO ×2 (11:30→22:18)
[2022-01-29] MEDS: Albumin Human 25% (100 mL) 25 GM/100 ML BAG IV (11:31)
--- NOTE | 2022-01-29 11:58 | PN.HOSP_ITS ---
Subjective Subjective Patient seen and examined. Patient was quite frustrated today and wanted to sign out AGAINST MEDICAL ADVICE. He felt that the treatment he was given was futile as he said it would only extend his life by few months that he did not think that it was of any benefit. He still complained of diarrhea and wanted his loperamide dose increased. He denied fever, chills, nausea, vomiting or any other complaints. Review of systems is otherwise negative. Objective Data Objective Data Vital Signs: Vital Signs Temp Pulse Resp BP Pulse Ox 98.0 F 67 18 112/54 L 96 01/29/22 11:25 01/29/22 11:25 01/29/22 11:25 01/29/22 11:25 01/29/22 11:25 Oxygen Delivery Method Room Air Weight: 180 lb 5.41 oz Body Mass Index (BMI) 24.4 Intake & Output: Intake and Output for Last 24 Hours 01/27/22 01/28/22 01/29/22 23:59 23:59 23:59 Intake Total 2191.25 / 2191.25 446.25 / 446.25 Balance 2191.25 / 2191.25 446.25 / 446.25 Lab / Micro Data Result Diagrams: 01/29/22 05:36 01/29/22 05:36 Labs: Laboratory Results - last 24 hr 01/28/22 11:25: Differential Comment , Platelet Estimate ADEQUATE, RBC Morphology NORM C+C 01/28/22 11:25: Sodium 127 L, Potassium 4.2, Chloride 92 L, Carbon Dioxide 25.0, Anion Gap 10, BUN 35 H, Creatinine 1.43 H, Estim Creat Clear Calc 50.50, Est GFR (MDRD) Af Amer 62, Est GFR (MDRD) Non-Af 51 L, BUN/Creatinine Ratio 24.5 H, Glucose 107 H, Calcium 7.6 L, Total Bilirubin 21.50 H*, AST 133 H, ALT 82 H, Alkaline Phosphatase 299 H, Troponin I High Sens 5, Total Protein 6.1 L, Albumin 1.7 L, Globulin 4.4 H, Albumin/Globulin Ratio 0.4 L 01/28/22 11:25: Lactic Acid 3.0 H* 01/28/22 11:25: Ammonia 18.0 01/28/22 11:25: C-React Prot Ext Range 70.10 H 01/28/22 11:25: ESR 55 H 01/28/22 11:25: Lactate Dehydrogenase 200 01/28/22 12:18: Urine Color Dora, Urine Clarity Sl. Cloudy, Urine pH 6.0, Ur Specific [place] 1.015, Urine Protein 30 H, Urine Glucose (UA) Normal, Urine Ketones 5 H, Urine Occult Blood 25 H, Urine Nitrite Positive H, Urine Bilirubin 6 H, Urine Urobilinogen 8 H, Ur Leukocyte Esterase 100 H, Urine RBC 0-5 SEEN, Urine WBC 5-10 SEEN, Ur Squamous Epith Cells 10-25 SEEN, Urine Bacteria 4+, Urine Mucus 0 SEEN 01/28/22 15:49: Lactic Acid 2.8 H* 01/28/22 20:19: Procalcitonin 1.23 H 01/28/22 : Fluid Source PERITONEAL FLUID, Fluid Color YELLOW, Fluid Appearance CLEAR, Fluid WBC 0.254, Fluid RBC 69, Fluid Tot Cell Count 0.281, Fld Polynuclear WBCs # 0.121, Fld Polynuclear WBCs % 47.6, Fluid Mononuclear WBCs 0.133, Fld Mononuclear WBCs % 52.4, Fluid Neutrophils 65, Fluid Lymphocytes 9, Fluid Monocytes 19, Fld Mesothelial Cells 7, Fl Pathologist Comment May follow, Fluid Comment 2 SEE COMMENT 01/29/22 05:36: WBC 14.7 H, RBC 4.74, Hgb 14.8, Hct 43.4, MCV 91.6, MCH 31.2, MCHC 34.1, RDW Std Deviation 60.7 H, RDW Coeff of [place] 18.1 H, Plt Count 201, MPV 9.8, Immature Gran % (Auto) 0.800, Neut % (Auto) 85.3 H, Lymph % (Auto) 3.5 L, [place] % (Auto) 8.9, Eos % (Auto) 0.9, Baso % (Auto) 0.6, Absolute Neuts (auto) 12.5 H, Absolute Lymphs (auto) 0.51 L, Nucleated RBC % 0, Differential Comment SCANNED 01/29/22 05:36: Sodium 128 L, Potassium 4.4, Chloride 98, Carbon Dioxide 21.0, Anion Gap 9, BUN 39 H, Creatinine 1.29, Estim Creat Clear Calc 55.98, Est GFR (MDRD) Af Amer 70, Est GFR (MDRD) Non-Af 58 L, BUN/Creatinine Ratio 30.2 H, Glucose 139 H, Calcium 7.8 L, Total Bilirubin 20.40 H*, AST 129 H, ALT 79 H, Alkaline Phosphatase 293 H, Total Protein 5.7 L, Albumin 1.6 L, Globulin 4.1, Albumin/Globulin Ratio 0.4 L 01/29/22 09:52: PT 25.1 H, INR 2.3, APTT 47.2 H Micro: Microbiology 01/28/22 Unknown Fluid - Paracentesis (Abd) Body Fluid Culture - Preliminary No growth-Final to follow 01/28/22 11:25 Nasal Secretion SARS-CoV-2 & FLU Antigen (Rapid) - Final Radiography Diagnostic Testing: Radiology Impression Abdomen/Pelvis CT 01/28/22 14:44 IMPRESSION: Diffuse ascites. 1.2 cm x 2 cm pleural-based nodule in the lateral aspect of the left lower lobe with underlying atelectasis and/or scarring. Findings suggestive of cirrhosis of the liver with possible mass in the left lobe. Surgical anastomosis is seen in the region of the ascending colon. Underlying mass cannot be excluded. Electronically Signed: Jose Jerome MD at 15:35 EDT , Rhythm Strip Rhythm Strip: Sinus Rhythm Rate: 65 Ectopy: None Physical Exam Const alert, oriented x3 and no apparent distress General Appearance: cooperative Exam Limitations: no limitations HEENT head/scalp atraumatic, hearing grossly normal bilaterally and moist oral mucous membranes Head and Scalp: normocephalic Eyes PERRL and EOMs intact bilaterally Eyes Narrative: deeply jaundiced sclera Neck no lymphadenopathy Resp Resp Narrative: diminished breath sounds bibasally, no wheezes or crackles. On room air. Cardio regular rate, regular rhythm, S1 normal heart sound, S2 normal heart sound and no murmurs GI GI Narrative: abdomen soft, nontender, mildly distended, has positive fluid thrill indicating ascites. Extremity normal to inspection, full ROM and no clubbing, cyanosis or edema Peripheral Pulses: Yes pulses 2+ throughout Skin no rashes or lesions noted Skin Narrative: deeply jaundiced Neuro oriented x3, CN's II-XII intact bilaterally and moves all extremities Sensorium / Orientation: awake and alert Psych affect normal Assessment & Plan Assessment/Plan (1) Acute UTI: (2) Sepsis: (3) Hyperbilirubinemia: (4) LINDA (acute kidney injury): PLAN: #Sepsis due to UTI and possible SBP * WBC is 14.7 today. * bilirubin is slightly down to 20.5 * on IV vancomycin and cefepime * gasroenterology on board. * MRCP ordered by GI today to ensure there is no obstructive component * started on mucomyst by gastroenterology. * also on albumin * MELD score is very elevated. * * #LINDA * resolved. CR is down to 1.29 * * #Lactic acidosis: Likely due to sepsis as well as liver cancer. lactic acid trended down to 2.8 #Severe hyperbilirubinemia Hepatocellular carcinoma s/p TACE procedure * Gastroenterology on board. * Bilirubin today is down slightly to 20. Albumin is also developing and INR is 2.2 * MRCP ordered by gastroenterology. Patient started on Mucomyst and albumin. * Will trend bilirubin. * I spoke to his oncologist today as patient was threatening to sign out AMA. Per his oncologist patient has not been compliant with his immunotherapy. Oncologist will call patient on the phone today and discuss goals of care with him. * #Ascites in setting of liver cancer * CT of the abdomen showed diffuse ascites * ED doctor did a tap and send fluid sample to the lab to assess for SBP * Patient will need therapeutic paracentesis and this can be done on Monday when radiology is here. * Started on IV vancomycin and cefepime. * Resume his furosemide and spironolactone * #BPH: on finasteride #GI prophylaxis: pantoprazole DVT prophylaxis; SCDs COde status: DNRCCA no intubation Charges/Coding Visit Charges Inpatient E&M: 97695 [facility] Hosp L3
--- NOTE | 2022-01-29 12:25 | CASEMGMT ---
MAYO FUCHS assessment: Face to Face with patient for initial transition planning/care coordination assessment. MAYO FUCHS introduced self and role at [facility], pt voices understanding and consents to assessment. Pt is sitting up in bed in no distress on room air. Pt is A/Ox4 and answers questions appropriately, but does fall asleep easily during conversation. Care providers, pharmacy, and demographics verified. Presentation: Pt w// Liver cancer and sent in by Dr. 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 Pt states his daughter, Serene Loya, is HPOA. LNOK: Serene Loya, daughter/HPOA Living Arrangements: Pt lives in basement of daughter's 2 story home and states no concerns at home. Pt is independent with ADL's. Transportation: Pt drives self or ex- drives and states no transportation concerns. DME/HHC: Pt has the following DME: walker, grab bars, and shower chair. Pt states no need for any further DME. Pt states no hx of HHC or SNF. Pt states no concerns with going home at time of discharge. Pt is retired. Pt states does not smoke cigarettes or drink ETOH. Pt states no further concerns/needs. CM to follow for any further discharge planning/needs. Advised pt to ask for CM if any further questions/concerns/needs arise, voices understanding. Pt Goal: Home Plan: Home [place] MAYO FUCHS
[2022-01-29] MEDS: Lactulose 20 GM/30 ML UDC PO (22:01)
[2022-01-30] VITALS (10 sets, daily range): BP systolic 114–121; BP diastolic 48–65; PULSE 66–96; RESP 16–18; TEMP 36.4–36.8; O2SAT 95–98
[2022-01-30] MEDS: Loperamide 2 MG Capsule PO ×3 (05:25→21:55)
[2022-01-30 06:04] LABS: Absolute Lymphocyte Count 0.51 X10^3/uL (0.83-4.51); Absolute Neutrophil Count 8.8 X10^3/uL (2.0-7.7); Basophil# 0.04 X10^3/uL; Basophil% 0.4 % (0-1); Eosinophil# 0.29 X10^3/uL; Eosinophils% 2.7 % (0-5); Hemoglobin 13.5 g/dL (13.0-16.5); Lymphocyte # 0.51 X10^3/ul (0.83-4.51); Lymphocyte % 4.8 % (19-41); Mean Corp Hgb Conc 33.8 g/dL (32-36); Mean Corpuscular Volume 91.7 fL (80-94); Mean Platelet Vol. 9.3 fl (6.2-12.0); Monocyte# 1.01 X10^3/uL; Monocyte% 9.4 % (0-10); NRBC Flagged by Analyzer 0 % (0-5); Neutrophil # 8.75 X10^3/uL (2.7-7.7); Neutrophil % 81.7 % (47-70); POSITIVE DIFFERENTIAL YES; Platelet Count 151 K/mm3 (150-450); RBC Distribution Width CV 18.2 % (11.6-14.6); RBC Distribution Width SD 61.3 fl (35.1-43.9); Red Blood Count 4.36 M/mm3 (4.6-6.2); White Blood Count 10.7 K/mm3 (4.4-11.0)
[2022-01-30 06:09] LABS: Differential Indicated SCAN CRITERIA MET
[2022-01-30 06:22] LABS: Anisocytosis 1+
[2022-01-30 06:28] LABS: Vancomycin, Trough Level 14.7 ug/mL (5.0-15.0)
[2022-01-30 06:39] LABS: ALB/GLOB Ratio 0.5 RATIO (0.9-2.4); AST(SGOT) 107 U/L (15-37); Alanine Aminotransfer ALT/SGPT 69 U/L (16-61); Albumin, Serum 1.7 g/dL (3.2-5.0); Alkaline Phosphatase 252 U/L (45-117); Anion Gap 8 (5-15); BUN 30 mg/dL (7-18); BUN/Creat Ratio 26.1 RATIO (10-20); Calcium,Total 7.5 mg/dL (8.5-10.1); Chloride 99 mmol/L (98-107); Creatinine, Serum 1.15 mg/dL (0.70-1.30); EST Glomerular Filtration Rate 66 mL/min (>60); Est Glom Filt Rate - Afr Amer 80 mL/min (>60); Estimated Creatinine Clearance 62.79 ml/min; Globulin 3.6 g/dL (2.2-4.2); Glucose 147 mg/dL (74-106); Potassium 4.2 mmol/L (3.5-5.1); Protein, Total 5.3 g/dL (6.4-8.2); Sodium Level 129 mmol/L (136-145)
--- NOTE | 2022-01-30 06:40 | PCM.RX.CS ---
Consult Pharmacy has been consulted to manage selected antiobiotic: Vancomycin Type of Consult: Follow-up Labs: Sodium 129 mmol/L (136-145) L 01/30/22 05:34 Potassium 4.2 mmol/L (3.5-5.1) 01/30/22 05:34 Chloride 99 mmol/L (98-107) 01/30/22 05:34 Carbon Dioxide 22.0 mmol/L (21.0-32.0) 01/30/22 05:34 Anion Gap 8 (5-15) 01/30/22 05:34 BUN 30 mg/dL (7-18) H 01/30/22 05:34 Creatinine 1.15 mg/dL (0.70-1.30) 01/30/22 05:34 Est GFR (MDRD) Af Amer 80 mL/min (>60) 01/30/22 05:34 Est GFR (MDRD) Non-Af 66 mL/min (>60) 01/30/22 05:34 BUN/Creatinine Ratio 26.1 RATIO (10-20) H 01/30/22 05:34 Glucose 147 mg/dL (74-106) H 01/30/22 05:34 Vancomycin Trough 14.7 ug/mL (5.0-15.0) 01/30/22 05:34 Microbiology: Microbiology 01/28/22 Unknown Fluid - Paracentesis (Abd) Gram Stain - Final 01/28/22 Unknown Fluid - Paracentesis (Abd) Body Fluid Culture - Preliminary No growth-Final to follow 01/28/22 12:18 Urine, Clean Catch Urine Culture - Preliminary Coag Negative Staph 01/28/22 11:25 Nasal Secretion SARS-CoV-2 & FLU Antigen (Rapid) - Final Goal Trough: 15-20 mcg/mL Pharmacy Plan for Drug Dosing: Pharmacy Service will continue to monitor and adjust dosing as required. TROUGH 14.7 AT 12 HOURS. NO CHANGES, FOLLOW UP TROUGH IN 2 DAYS Follow-Up Labs: Trough Vancomycin Labs to be done on [date and time ordered]: 02/01 @ 6461
[2022-01-30] MEDS: Morphine 2 MG/ML Syringe 1 MG IV ×2 (09:14→22:54)
[2022-01-30] MEDS: 0.9% Saline Lock 10 ML Syringe IV ×3 (09:15→17:44)
[2022-01-30] MEDS: Acetylcysteine (Mucomyst Oral) 20% SOLN 1200 MG PO ×2 (09:31→22:03)
[2022-01-30] MEDS: Lactulose 20 GM/30 ML UDC PO (09:31)
[2022-01-30] MEDS: Potassium Chloride Oral Tablet 20 MEQ PO (09:31)
[2022-01-30] MEDS: Pantoprazole Sodium 40 MG Tablet PO (09:32)
[2022-01-30] MEDS: Finasteride 5 MG Tablet PO (09:32)
[2022-01-30] MEDS: rifAXIMin 550 MG Tablet PO ×2 (09:32→21:54)
--- NOTE | 2022-01-30 13:02 | PN.HOSP_ITS ---
Subjective Subjective Patient seen and examined. He had no active complaints today. He had an uneventful night, and review of systems is otherwise negative. He has remained hemodynamically stable. Objective Data Objective Data Vital Signs: Vital Signs Temp Pulse Resp BP Pulse Ox 97.7 F L 85 18 114/48 L 96 01/30/22 09:30 01/30/22 11:00 01/30/22 09:30 01/30/22 09:30 01/30/22 09:30 Oxygen Delivery Method Room Air Weight: 180 lb 5.41 oz Body Mass Index (BMI) 24.4 Intake & Output: Intake and Output for Last 24 Hours 01/28/22 01/29/22 01/30/22 23:59 23:59 23:59 Intake Total 2191.25 / 2191.25 1101.25 / 1101.25 1472.5 / 1472.5 Balance 2191.25 / 2191.25 1101.25 / 1101.25 1472.5 / 1472.5 Lab / Micro Data Result Diagrams: 01/30/22 05:34 01/30/22 05:34 Labs: Laboratory Results - last 24 hr 01/30/22 05:34: WBC 10.7, RBC 4.36 L, Hgb 13.5, Hct 40.0, MCV 91.7, MCH 31.0, MCHC 33.8, RDW Std Deviation 61.3 H, RDW Coeff of Bre[place] 18.2 H, Plt Count 151, MPV 9.3, Immature Gran % (Auto) 1.000 H, Neut % (Auto) 81.7 H, Lymph % (Auto) 4.8 L, [place] % (Auto) 9.4, Eos % (Auto) 2.7, Baso % (Auto) 0.4, Absolute Neuts (auto) 8.8 H, Absolute Lymphs (auto) 0.51 L, Nucleated RBC % 0, Anisocytosis 1+ 01/30/22 05:34: Sodium 129 L, Potassium 4.2, Chloride 99, Carbon Dioxide 22.0, Anion Gap 8, BUN 30 H, Creatinine 1.15, Estim Creat Clear Calc 62.79, Est GFR (MDRD) Af Amer 80, Est GFR (MDRD) Non-Af 66, BUN/Creatinine Ratio 26.1 H, Glucose 147 H, Calcium 7.5 L, Total Bilirubin 19.60 H*, AST 107 H, ALT 69 H, Alkaline Phosphatase 252 H, Total Protein 5.3 L, Albumin 1.7 L, Globulin 3.6, Albumin/Globulin Ratio 0.5 L 01/30/22 05:34: Vancomycin Trough 14.7 Micro: Microbiology 01/28/22 Unknown Fluid - Paracentesis (Abd) Gram Stain - Final 01/28/22 Unknown Fluid - Paracentesis (Abd) Body Fluid Culture - Preliminary No growth-Final to follow 01/28/22 Unknown Fluid - Paracentesis (Abd) Anaerobic Culture - Preliminary No growth in 48 hours. 01/28/22 12:18 Urine, Clean Catch Urine Culture - Final Staphylococcus epidermidis 01/28/22 11:25 Nasal Secretion SARS-CoV-2 & FLU Antigen (Rapid) - Final Radiography Diagnostic Testing: Radiology Impression MRCP 01/29/22 08:54 IMPRESSION: Cholelithiasis. No MRCP evidence of choledocholithiasis. Electronically Signed: Wesly James MD at 13:09 EDT , Rhythm Strip Rhythm Strip: Sinus Rhythm Rate: 65 Ectopy: None Physical Exam Const alert, oriented x3 and no apparent distress General Appearance: cooperative Exam Limitations: no limitations HEENT head/scalp atraumatic, hearing grossly normal bilaterally and moist oral mucous membranes Head and Scalp: normocephalic Eyes PERRL and EOMs intact bilaterally Eyes Narrative: deeply jaundiced sclera Neck no lymphadenopathy Resp Resp Narrative: diminished breath sounds bibasally, no wheezes or crackles. On room air. Cardio regular rate, regular rhythm, S1 normal heart sound, S2 normal heart sound and no murmurs GI GI Narrative: abdomen remains soft, nontender, mildly distended, has positive fluid thrill indicating ascites. Extremity normal to inspection, full ROM and no clubbing, cyanosis or edema Peripheral Pulses: Yes pulses 2+ throughout Skin no rashes or lesions noted Skin Narrative: deeply jaundiced Neuro oriented x3, CN's II-XII intact bilaterally and moves all extremities Sensorium / Orientation: awake and alert Psych affect normal Assessment & Plan Assessment/Plan (1) Acute UTI: (2) Sepsis: (3) Hyperbilirubinemia: (4) LINDA (acute kidney injury): PLAN: #Sepsis due to UTI and possible SBP * WBC is down to 10.7 today * bilirubin has trended down some more to 19.6 today * remains on IV vancomycin and cefepime * gasroenterology on board. * MRCP ordered by GI today to ensure there is no obstructive component * started on mucomyst by gastroenterology. * also on albumin * MELD score is very elevated. * * #LINDA * resolved. CR is down to 1.15 * * #Lactic acidosis: Likely due to sepsis as well as liver cancer. lactic acid trended down to 2.8 #Severe hyperbilirubinemia Hepatocellular carcinoma s/p TACE procedure * Gastroenterology on board. * Bilirubin today is down slightly to 19.6. Albumin is also developing and INR is 2.2 * MRCP ordered by gastroenterology. Patient started on Mucomyst and albumin. * Will trend bilirubin. * patient spoke with his oncologist Dr Lopez by phone yesterday, and is going to follow up with him on outpatient basis #Ascites in setting of liver cancer * CT of the abdomen showed diffuse ascites * ED doctor did a tap and send fluid sample to the lab to assess for SBP * fluid analysis showed wbc of 0.254, and total cell count of 0.281, with absolute polynuclear wbc count of 121. * Patient will need therapeutic paracentesis and this can be done on Monday when radiology is here. * on IV vancomycin and cefepime. * On furosemide and spironolactone * #BPH: on finasteride #GI prophylaxis: pantoprazole DVT prophylaxis; SCDs COde status: DNRCCA no intubation Charges/Coding Visit Charges Inpatient E&M: 11007 [facility] Hosp L3
[2022-01-31] VITALS (12 sets, daily range): BP systolic 108–126; BP diastolic 53–62; PULSE 68–82; RESP 16–24; TEMP 36.4–36.8; O2SAT 93–97
[2022-01-31 05:03] LABS: Absolute Lymphocyte Count 0.38 X10^3/uL (0.83-4.51); Absolute Neutrophil Count 7.6 X10^3/uL (2.0-7.7); Basophil# 0.06 X10^3/uL; Basophil% 0.6 % (0-1); Eosinophil# 0.33 X10^3/uL; Eosinophils% 3.5 % (0-5); Hematocrit 39.5 % (40-54); Hemoglobin 13.5 g/dL (13.0-16.5); Lymphocyte # 0.38 X10^3/ul (0.83-4.51); Mean Corp Hgb Conc 34.2 g/dL (32-36); Mean Corpuscular Hgb 31.9 pg (27.0-32.0); Mean Corpuscular Volume 93.4 fL (80-94); Mean Platelet Vol. 9.6 fl (6.2-12.0); Monocyte# 0.96 X10^3/uL; Monocyte% 10.2 % (0-10); NRBC Flagged by Analyzer 0 % (0-5); Neutrophil # 7.59 X10^3/uL (2.7-7.7); Neutrophil % 80.6 % (47-70); POSITIVE DIFFERENTIAL YES; Platelet Count 144 K/mm3 (150-450); RBC Distribution Width CV 18.6 % (11.6-14.6); RBC Distribution Width SD 62.9 fl (35.1-43.9); Red Blood Count 4.23 M/mm3 (4.6-6.2); White Blood Count 9.4 K/mm3 (4.4-11.0)
[2022-01-31 05:14] LABS: Differential Indicated SCAN CRITERIA MET
[2022-01-31 05:25] LABS: ALB/GLOB Ratio 0.4 RATIO (0.9-2.4); AST(SGOT) 105 U/L (15-37); Alanine Aminotransfer ALT/SGPT 66 U/L (16-61); Albumin, Serum 1.6 g/dL (3.2-5.0); Alkaline Phosphatase 289 U/L (45-117); Anion Gap 8 (5-15); BUN 25 mg/dL (7-18); BUN/Creat Ratio 28.7 RATIO (10-20); Calcium,Total 7.3 mg/dL (8.5-10.1); Chloride 102 mmol/L (98-107); Creatinine, Serum 0.87 mg/dL (0.70-1.30); EST Glomerular Filtration Rate 91 mL/min (>60); Est Glom Filt Rate - Afr Amer 110 mL/min (>60); Globulin 3.6 g/dL (2.2-4.2); Glucose 125 mg/dL (74-106); Potassium 4.3 mmol/L (3.5-5.1); Protein, Total 5.2 g/dL (6.4-8.2); Sodium Level 131 mmol/L (136-145)
[2022-01-31 05:37] LABS: Differential Comment SCANNED
[2022-01-31] MEDS: Loperamide 2 MG Capsule PO ×3 (05:54→20:52)
[2022-01-31] MEDS: 0.9% Saline Lock 10 ML Syringe IV ×3 (05:57→14:37)
[2022-01-31 08:17] LABS: International Normalized Ratio 1.7; Prothrombin Time (Protime)PT. 19.7 SECONDS (11.7-14.9)
[2022-01-31 08:19] LABS: Partial Thromboplast Time 41.1 Seconds (24.1-36.2)
[2022-01-31] MEDS: Ondansetron 4 MG/2 ML Vial IV (08:31)
[2022-01-31] MEDS: rifAXIMin 550 MG Tablet PO ×2 (08:32→20:52)
[2022-01-31] MEDS: Lactulose 20 GM/30 ML UDC PO ×2 (08:32→20:51)
[2022-01-31] MEDS: Pantoprazole Sodium 40 MG Tablet PO (08:32)
[2022-01-31] MEDS: Finasteride 5 MG Tablet PO (08:32)
[2022-01-31] MEDS: Potassium Chloride Oral Tablet 20 MEQ PO (08:33)
[2022-01-31] MEDS: Acetylcysteine (Mucomyst Oral) 20% SOLN 1200 MG PO ×2 (09:23→21:28)
[2022-01-31 13:13] LABS: Pathologist Comment/Body Fluid Reviewed
[2022-01-31] MEDS: Lidocaine 2% (20 ml mdv) 20 ML Vial INFILT (13:48)
--- NOTE | 2022-01-31 13:54 | CASEMGMT ---
Per Dr. Cohen, she would like palliative c/s for pt and order placed and e-mailed at this time. Call to Evelyne at palliative to notify, voices understanding. Melania HUBER CM
[2022-01-31] MEDS: Morphine 2 MG/ML Syringe 1 MG IV (14:35)
--- NOTE | 2022-01-31 14:39 | PCM.PN.HOSP ---
Subjective Subjective Follow-up on sepsis secondary to UTI/possible SBP/LINDA/lactic acidosis/hyperbilirubinemia/hepatocellular carcinoma: Patient was seen and examined. He had therapeutic paracentesis today; about 2L of ascitic fluid were removed. Denied any fever or chills Objective Data Objective Data Vital Signs: Vital Signs Temp Pulse Resp BP Pulse Ox 97.6 F L 73 24 H 118/54 L 97 01/31/22 09:15 01/31/22 13:48 01/31/22 13:48 01/31/22 13:48 01/31/22 09:15 Oxygen Delivery Method [2] Room Air Oxygen Delivery Method [1 ( Room Air Initial Baseline)] Oxygen Delivery Method Room Air Weight: 81.8 kg Body Mass Index (BMI) 24.4 Intake & Output: Intake and Output for Last 24 Hours 01/29/22 01/30/22 01/31/22 23:59 23:59 23:59 Intake Total 1101.25 / 1101.25 2027.5 / 2147.5 915 / 915 Output Total 2550 / 2550 Balance 1101.25 / 1101.25 2027.5 / 2147.5 -1635 / -1635 Lab / Micro Data Result Diagrams: 01/31/22 04:55 01/31/22 04:55 Labs: Laboratory Results - last 24 hr 01/28/22 : Fl Pathologist Comment Reviewed 01/31/22 04:55: WBC 9.4, RBC 4.23 L, Hgb 13.5, Hct 39.5 L, MCV 93.4, MCH 31.9, MCHC 34.2, RDW Std Deviation 62.9 H, RDW Coeff of Breana 18.6 H, Plt Count 144 L, MPV 9.6, Immature Gran % (Auto) 1.100 H, Neut % (Auto) 80.6 H, Lymph % (Auto) 4.0 L, [place] % (Auto) 10.2 H, Eos % (Auto) 3.5, Baso % (Auto) 0.6, Absolute Neuts (auto) 7.6, Absolute Lymphs (auto) 0.38 L, Nucleated RBC % 0, Differential Comment SCANNED 01/31/22 04:55: Sodium 131 L, Potassium 4.3, Chloride 102, Carbon Dioxide 21.0, Anion Gap 8, BUN 25 H, Creatinine 0.87, Estim Creat Clear Calc 83.00, Est GFR (MDRD) Af Amer 110, Est GFR (MDRD) Non-Af 91, BUN/Creatinine Ratio 28.7 H, Glucose 125 H, Calcium 7.3 L, Total Bilirubin 19.40 H*, AST 105 H, ALT 66 H, Alkaline Phosphatase 289 H, Total Protein 5.2 L, Albumin 1.6 L, Globulin 3.6, Albumin/Globulin Ratio 0.4 L 01/31/22 07:51: PT 19.7 H, INR 1.7, APTT 41.1 H Micro: Microbiology 01/28/22 Unknown Fluid - Paracentesis (Abd) Gram Stain - Final 01/28/22 Unknown Fluid - Paracentesis (Abd) Body Fluid Culture - Preliminary No growth-Final to follow 01/28/22 Unknown Fluid - Paracentesis (Abd) Anaerobic Culture - Preliminary No growth in 48 hours. 01/28/22 11:25 Blood Culture (Wb) - Anticubital Left Blood Culture - Preliminary No growth in 48 hours. 01/28/22 12:33 Blood Culture (Wb) - Anticubital Left Blood Culture - Preliminary No growth in 48 hours. 01/28/22 12:18 Urine, Clean Catch Urine Culture - Final Staphylococcus epidermidis 01/28/22 11:25 Nasal Secretion SARS-CoV-2 & FLU Antigen (Rapid) - Final Radiography Diagnostic Testing: Radiology Impression Paracentesis Ultrasound 01/31/22 19:00 IMPRESSION: Ultrasound guided paracentesis. Electronically Signed: Jose Jerome MD at 14:30 EDT , Rhythm Strip Rhythm Strip: Sinus Rhythm Rate: 65 Ectopy: None Physical Exam Narrative Physical exam: General: Alert, Oriented x3, Cooperative, No apparent distress HEENT: Atraumatic Oral: Moist Mucosa Neck: Supple Lungs: Clear to auscultation Cardiovascular: HS I+II, regular, no murmurs Abdomen: Bowel Sounds Present, Soft, Non Tender Extremities: No edema Skin: No rashes, No breakdown Neurological: Grossly intact Psych/Mental Status: Appropriate Assessment & Plan Assessment/Plan (1) Acute UTI: (2) Sepsis: (3) Hyperbilirubinemia: (4) LINDA (acute kidney injury): PLAN: 1. Sepsis due to Acute UTI and possible SBP, improved WBC is 9.4, down from 10.7 Urine cultures showed Staph epidermidis. Blood cultures are negative Patient had paracentesis today, will follow-up on cultures Continue on IV vancomycin and cefepime Patient is palliative care/hospice appropriate; palliative care to be consulted 2. LINDA, resolved 3. Severe hyperbilirubinemia secondary to Hepatocellular carcinoma s/p TACE procedure GI following, discussed with GI and oncology; oncology recommends MRI liver Overall LFTs do not appear changed 4. Probable ileus, will get KUB 5. Lactic acidosis secondary to #1 and 3, improved 6. DVT prophylaxis- SCDs Charges/Coding Visit Charges Inpatient E&M: 04520 Subs Hosp L2
--- NOTE | 2022-01-31 15:37 | MRI_ITS ---
STUDY: MRI ABDOMEN WITH AND WITHOUT CONTRAST REASON FOR EXAM: Male, 71 years old. Hepatocellular carcinoma TECHNIQUE: Standardized fat and water weighted pulse sequences were obtained in all 3 orthogonal planes post contrast administration. IV 15ml dotarem was administered for the contrast portion of the examination. COMPARISON: CT 01/28/2022 FINDINGS: The visualized lung bases are unremarkable. The visualized portions of the heart are within normal limits. There is a diffuse contour abnormality of the liver consistent with cirrhotic changes. There are multiple masses in the left and right hepatic lobes. The largest mass is seen in the left hepatic lobe measuring 5.0 x 5.2 cm with lobular borders and early/arterial enhancement. Early enhancing lesion in the posterior right hepatic lobe measuring 1.5 x 2.1 cm on image 72 of series 1301. Heterogeneous mass in the posterior right hepatic dome measuring 3.1 cm with adjacent parenchymal enhancement suggesting possibility of neovascularity/hyperemia. Portal vein is patent without neoplastic or bland thrombus. Moderate ascites. Normal gallbladder and extrahepatic biliary system. There is moderate splenomegaly. There are paraesophageal varicosities. Normal pancreas. Normal bilateral adrenal glands. Normal right kidney. Slightly low T1 and T2 signal intensity lesion of the central left kidney measures 3.1 cm without abnormal enhancement (BOSNIAK II). Hollow viscus structures are unremarkable in their visualized extent. Normal abdominal aorta. Normal inferior vena cava. Normal retroperitoneum. Normal abdominal wall. No bone marrow edema. MRI/MRI Abd WITH and W/O Contrast IMPRESSION: 1. Multifocal hepatic masses with MRI features compatible with hepatocellular carcinoma. Dominant lesion in the left hepatic lobe. 2. Cirrhosis, splenomegaly, ascites, upper abdominal varicosities. Electronically Signed: Dave Carrillo MD ([place]) at 20:54 EDT ,
--- NOTE | 2022-01-31 16:00 | RAD_ITS ---
STUDY: X-RAY - ABDOMEN/PELVIS REASON FOR EXAM: Male, 71 years old. Ileus TECHNIQUE: Single AP view of the abdomen / pelvis. COMPARISON: None. FINDINGS: Normal visualized lung bases. Air distention stomach. No dilated loops of small bowel. There is no demonstrated free abdominal air. The visualized liver, spleen and kidneys are grossly normal in size and morphology. Normal soft tissue structures. There are diffuse degenerative changes of the visualized lumbar spine and bilateral hips. RAD/Abdomen Single View (Portable) IMPRESSION: Air distention of the stomach. No dilated loops of small bowel. Electronically Signed: Dave Carrillo MD ([place]) at 16:20 EDT ,
[2022-01-31] MEDS: 0.9% Normal Saline 1,000 ML 75 ML IV (17:22)
--- NOTE | 2022-01-31 19:00 | US_ITS ---
PROCEDURE: Ultrasound guided paracentesis. DATE OF EXAMINATION: 01/31/2022. INDICATION: Male, 71 years old. Ascites. PHYSICIAN: Jose Jerome M.D. TECHNIQUE: The risks, benefits, and alternatives to the procedure were explained to the patient. The specific risks of bleeding, infection, and damage to bowel were detailed and accepted. Witnessed informed consent was obtained. The abdomen was ultrasonographically surveyed. An appropriate pocket of fluid was identified at the right lower quadrant. The skin were cleaned and prepped in the usual sterile fashion. Using ultrasound guidance, the peritoneal cavity was accessed with a 5-Monegasque paracentesis needle/catheter system. The trocar was removed. A total of 2550 ml of angeline-colored fluid were removed from the peritoneal cavity. The catheter was removed and a sterile dressing was applied. The procedure was well tolerated. US/Paracentesis with US IMPRESSION: Ultrasound guided paracentesis. Electronically Signed: Jose Jerome MD at 14:30 EDT ,
[2022-02-01] VITALS (7 sets, daily range): BP systolic 97–133; BP diastolic 48–73; PULSE 73–81; RESP 16; TEMP 36.6–36.7; O2SAT 94–96
[2022-02-01 06:10] LABS: Absolute Lymphocyte Count 0.39 X10^3/uL (0.83-4.51); Basophil# 0.07 X10^3/uL; Basophil% 0.9 % (0-1); Eosinophil# 0.24 X10^3/uL; Eosinophils% 3.1 % (0-5); Hematocrit 39.6 % (40-54); Hemoglobin 13.3 g/dL (13.0-16.5); Lymphocyte # 0.39 X10^3/ul (0.83-4.51); Mean Corp Hgb Conc 33.6 g/dL (32-36); Mean Corpuscular Hgb 31.4 pg (27.0-32.0); Mean Corpuscular Volume 93.6 fL (80-94); Mean Platelet Vol. 9.7 fl (6.2-12.0); Monocyte# 1.03 X10^3/uL; Monocyte% 13.1 % (0-10); NRBC Flagged by Analyzer 0 % (0-5); Neutrophil # 5.98 X10^3/uL (2.7-7.7); Neutrophil % 76.1 % (47-70); POSITIVE DIFFERENTIAL YES; Platelet Count 138 K/mm3 (150-450); RBC Distribution Width CV 18.6 % (11.6-14.6); RBC Distribution Width SD 63.3 fl (35.1-43.9); Red Blood Count 4.23 M/mm3 (4.6-6.2); White Blood Count 7.9 K/mm3 (4.4-11.0)
[2022-02-01 06:15] LABS: Differential Indicated SCAN CRITERIA MET
[2022-02-01 06:36] LABS: Differential Comment SCANNED; Vancomycin, Trough Level 13.7 ug/mL (5.0-15.0)
[2022-02-01 06:52] LABS: ALB/GLOB Ratio 0.4 RATIO (0.9-2.4); AST(SGOT) 97 U/L (15-37); Alanine Aminotransfer ALT/SGPT 64 U/L (16-61); Albumin, Serum 1.5 g/dL (3.2-5.0); Alkaline Phosphatase 325 U/L (45-117); Anion Gap 7 (5-15); BUN 23 mg/dL (7-18); BUN/Creat Ratio 27.7 RATIO (10-20); Calcium,Total 7.5 mg/dL (8.5-10.1); Chloride 104 mmol/L (98-107); Creatinine, Serum 0.83 mg/dL (0.70-1.30); EST Glomerular Filtration Rate 96 mL/min (>60); Est Glom Filt Rate - Afr Amer 117 mL/min (>60); Globulin 3.5 g/dL (2.2-4.2); Glucose 146 mg/dL (74-106); Potassium 4.6 mmol/L (3.5-5.1); Sodium Level 133 mmol/L (136-145)
--- NOTE | 2022-02-01 07:29 | PCM.RX.CS ---
Consult Pharmacy has been consulted to manage selected antiobiotic: Vancomycin Type of Consult: Follow-up Prior Doses of Antibiotics Received/Current Regimen: current dose is 750mg IV q12h Labs: Sodium 133 mmol/L (136-145) L 02/01/22 05:35 Potassium 4.6 mmol/L (3.5-5.1) 02/01/22 05:35 Chloride 104 mmol/L (98-107) 02/01/22 05:35 Carbon Dioxide 22.0 mmol/L (21.0-32.0) 02/01/22 05:35 Anion Gap 7 (5-15) 02/01/22 05:35 BUN 23 mg/dL (7-18) H 02/01/22 05:35 Creatinine 0.83 mg/dL (0.70-1.30) 02/01/22 05:35 Est GFR (MDRD) Af Amer 117 mL/min (>60) 02/01/22 05:35 Est GFR (MDRD) Non-Af 96 mL/min (>60) 02/01/22 05:35 BUN/Creatinine Ratio 27.7 RATIO (10-20) H 02/01/22 05:35 Glucose 146 mg/dL (74-106) H 02/01/22 05:35 Vancomycin Trough 13.7 ug/mL (5.0-15.0) 02/01/22 05:35 Microbiology: Microbiology 01/28/22 Unknown Fluid - Paracentesis (Abd) Gram Stain - Final 01/28/22 Unknown Fluid - Paracentesis (Abd) Body Fluid Culture - Preliminary No growth-Final to follow 01/28/22 Unknown Fluid - Paracentesis (Abd) Anaerobic Culture - Preliminary No growth in 48 hours. 01/28/22 11:25 Blood Culture (Wb) - Anticubital Left Blood Culture - Preliminary No growth in 48 hours. 01/28/22 12:33 Blood Culture (Wb) - Anticubital Left Blood Culture - Preliminary No growth in 48 hours. 01/28/22 12:18 Urine, Clean Catch Urine Culture - Final Staphylococcus epidermidis 01/28/22 11:25 Nasal Secretion SARS-CoV-2 & FLU Antigen (Rapid) - Final Weight used for dosin.8 kg Estimated Creatinine Clearance: 87ml/min Goal Trough: 15-20 mcg/mL Pharmacy Plan for Drug Dosing: The vanc trough obtained before this morning's dose (drawn 12 hours after the previous dose) was 13.7. This is below goal range and has gone down since the previous trough of 14.7 on 01/30/22 so will increase next dose to 1000mg q12h. This morning's 750mg dose was already given so will start the new 1000mg dose earlier than 12 hours after that. Repeat another trough before the 4th new dose. Pharmacy Service will continue to monitor and adjust dosing as required. Follow-Up Labs: Trough Vancomycin Labs to be done on [date and time ordered]: 02/03/22 02:30
[2022-02-01 07:39] LABS: Bilirubin, Direct 13.79 mg/dL (0.00-0.30)
[2022-02-01] MEDS: Morphine 2 MG/ML Syringe 1 MG IV (09:07)
[2022-02-01] MEDS: Potassium Chloride Oral Tablet 20 MEQ PO (10:48)
[2022-02-01] MEDS: rifAXIMin 550 MG Tablet PO (10:48)
[2022-02-01] MEDS: Finasteride 5 MG Tablet PO ×2 (10:48)
[2022-02-01] MEDS: Lactulose 20 GM/30 ML UDC PO (10:49)
[2022-02-01] MEDS: Pantoprazole Sodium 40 MG Tablet PO (10:49)
[2022-02-01] MEDS: Acetylcysteine (Mucomyst Oral) 20% SOLN 1200 MG PO (10:52)
--- NOTE | 2022-02-01 13:48 | PCM.DC ---
Discharge Instructions Diet Discharge Diet: No restrictions Activity Discharge Activity: Return to Normal Activity Follow Up Care Test Results: Test results from this visit will be discussed in further detail at your follow-up appointment, if applicable. Discharge Plan Admission Admit Date/Time: 01/28/22 16:17 Primary Reason for Your Visit: Abnormal blood work Attending Provider: Johanna Cohen Primary Care Provider: Chandana Kenny Consulting Providers: Alina Piedra Instructions Patient Instructions: Paracentesis Dc Additional Instructions / Restrictions: You will be followed up by palliative care team Discharge Orders/Prescriptions Prescriptions: New acetylcysteine 200 mg/mL (20 %) Solution 1,200 mg PO BID 30 Days Qty: 360 RF: 0 Continued furosemide [Lasix] 40 mg Tablet 40 mg PO DAILY RF: 0 loperamide 2 mg Capsule 2 mg PO TID RF: 0 hydrocodone-acetaminophen 5-325 mg Tablet 1 tab PO BID PRN (Reason: Pain) RF: 0 spironolactone [Aldactone] 100 mg Tablet 100 mg PO DAILY RF: 0 omeprazole 40 mg Capsule,Delayed Release(Dr/Ec) 40 mg PO DAILY RF: 0 temazepam 15 mg Capsule 15 mg PO QHS PRN (Reason: Sleep) RF: 0 finasteride 5 mg tablet 5 mg PO DAILY RF: 0 potassium chloride 20 mEq Tablet Extended Release 20 meq PO DAILY RF: 0 lactulose 10 gram/15 mL solution 20 g PO BID RF: 0 Referrals / Follow Up: Jaswinder Lopez DO [STAFF PHYSICIAN] - In 1 Week Chandana Kenny DO [Primary Care Provider] - Within 1 Week Disposition Disposition (needs filled in before D/C Order can be placed): Home, Self Care
--- NOTE | 2022-02-01 13:55 | PCM.DC.SUM ---
Providers Date of Admission: 01/28/22 Date of Discharge: 02/01/22 Primary Care Physician: Dr. Chandana Kenny, Consultations 01/28/22 16:34 Consult: Gastroenterology Routine Consulting Provider: U[facility] Reason for Consult: hyperbilirubinemia EMERGENT Consult: No MD Notified: Yes Date Notified: 01/28/22 Time Notified: 16:20 Method of Notification: Text Reason For Visit: SEPSIS, UTI, HYPERBILRUBINEMIA Diagnosis Discharge Diagnosis (1) Acute UTI: Status: Acute Code(s): N39.0 - Urinary tract infection, site not specified (2) Sepsis: Status: Acute Code(s): A41.9 - Sepsis, unspecified organism (3) Hyperbilirubinemia: Status: Acute Code(s): E80.6 - Other disorders of bilirubin metabolism (4) LINDA (acute kidney injury): Status: Acute Code(s): N17.9 - Acute kidney failure, unspecified Medications at Discharge Home Medications finasteride 5 mg PO DAILY 12/12/21 furosemide [Lasix] 40 mg PO DAILY 12/12/21 hydrocodone-acetaminophen 1 tab PO BID PRN 12/12/21 loperamide 2 mg PO TID 12/12/21 omeprazole 40 mg PO DAILY 12/12/21 potassium chloride 20 meq PO DAILY 12/12/21 spironolactone [Aldactone] 100 mg PO DAILY 12/12/21 temazepam 15 mg PO QHS PRN 12/12/21 lactulose 20 g PO BID 01/28/22 acetylcysteine 1,200 mg PO BID 30 Days #360 ml 02/01/22 Hospital Course Operations None Procedures Paracentesis (01/31/22) Summary of Care Provided Minutes Spent on Discharge: 40 Hospital Course: Two 1-year-old with a past medical history of hepatocellular CA, status post chemoembolization and undergoing immunotherapy who comes in with lethargy, nausea and vomiting ongoing for 4 days. Patient was found to have WBC count of 14.3, INR 2.2, lactic acid 3, total bilirubin was 21.5. CT of the abdomen showed diffuse ascites with 1.2 cm x 2 cm pleural-based nodule in the left lower lobe with underlying atelectasis and or scarring throughout the liver. Patient was also found to have UTI. Urine cultures grew MSSA. He was managed with IV antibiotics. He completed 4 days of antibiotics. Patient positive fluid culture was negative. Patient was followed by GI. MRCP showed cholelithiasis but no choledocholithiasis. Patient's total bilirubin became slightly worse. He underwent therapeutic paracentesis on 01/31/22. Patient will be followed by palliative care in the outpatient. He underwent repeat MRI of the liver that showed multifocal hepatic masses, cirrhosis, splenomegaly, ascites, upper abdominal varicosities. He will follow-up with oncology in the outpatient Physical Exam Narrative Physical exam: General: Alert, Oriented x3, Cooperative, No apparent distress HEENT: Atraumatic Oral: Moist Mucosa Neck: Supple Lungs: Clear to auscultation Cardiovascular: HS I+II, regular, no murmurs Abdomen: Full, ascites++, owel Sounds Present, Soft, Non Tender Extremities: No edema Skin: No rashes, No breakdown Neurological: Grossly intact Psych/Mental Status: Appropriate Weight / BMI Weight Weight: 81.8 kg Body Mass Index (BMI) 24.4 ABG / Lab / Microbiology Data Result Diagrams: 02/01/22 05:35 02/01/22 05:35 Laboratory: Laboratory Results - last 24 hr 02/01/22 05:35: Vancomycin Trough 13.7 02/01/22 05:35: WBC 7.9, RBC 4.23 L, Hgb 13.3, Hct 39.6 L, MCV 93.6, MCH 31.4, MCHC 33.6, RDW Std Deviation 63.3 H, RDW Coeff of Breana 18.6 H, Plt Count 138 L, MPV 9.7, Immature Gran % (Auto) 1.800 H, Neut % (Auto) 76.1 H, Lymph % (Auto) 5.0 L, [place] % (Auto) 13.1 H, Eos % (Auto) 3.1, Baso % (Auto) 0.9, Absolute Neuts (auto) 6.0, Absolute Lymphs (auto) 0.39 L, Nucleated RBC % 0, Differential Comment SCANNED 02/01/22 05:35: Sodium 133 L, Potassium 4.6, Chloride 104, Carbon Dioxide 22.0, Anion Gap 7, BUN 23 H, Creatinine 0.83, Estim Creat Clear Calc 87.00, Est GFR (MDRD) Af Amer 117, Est GFR (MDRD) Non-Af 96, BUN/Creatinine Ratio 27.7 H, Glucose 146 H, Calcium 7.5 L, Total Bilirubin 18.70 H*, AST 97 H, ALT 64 H, Alkaline Phosphatase 325 H, Total Protein 5.0 L, Albumin 1.5 L, Globulin 3.5, Albumin/Globulin Ratio 0.4 L 02/01/22 05:35: Direct Bilirubin 13.79 H Microbiology: Microbiology 01/28/22 Unknown Fluid - Paracentesis (Abd) Gram Stain - Final 01/28/22 Unknown Fluid - Paracentesis (Abd) Body Fluid Culture - Final Culture exhibits no growth. 01/28/22 Unknown Fluid - Paracentesis (Abd) Anaerobic Culture - Preliminary No growth in 48 hours. 01/28/22 11:25 Blood Culture (Wb) - Anticubital Left Blood Culture - Preliminary No growth in 48 hours. 01/28/22 12:33 Blood Culture (Wb) - Anticubital Left Blood Culture - Preliminary No growth in 48 hours. 01/28/22 12:18 Urine, Clean Catch Urine Culture - Final Staphylococcus epidermidis 01/28/22 11:25 Nasal Secretion SARS-CoV-2 & FLU Antigen (Rapid) - Final Radiography Diagnostic Testing: Radiology Impression Abdomen MRI 01/31/22 15:37 IMPRESSION: 1. Multifocal hepatic masses with MRI features compatible with hepatocellular carcinoma. Dominant lesion in the left hepatic lobe. 2. Cirrhosis, splenomegaly, ascites, upper abdominal varicosities. Electronically Signed: Dave Carrillo MD ([place]) at 20:54 EDT , KUB X-Ray 01/31/22 16:00 IMPRESSION: Air distention of the stomach. No dilated loops of small bowel. Electronically Signed: Dave Carrillo MD ([place]) at 16:20 EDT , Paracentesis Ultrasound 01/31/22 19:00 IMPRESSION: Ultrasound guided paracentesis. Electronically Signed: Jose Jerome MD at 14:30 EDT , D/C Instructions Discharge Diet: No restrictions Meaningful Use Info Meaningful Use Diagnoses (Choose all that apply): None applicable Discharge Plan Admission Admit Date/Time: 01/28/22 16:17 Primary Reason for Your Visit: Abnormal blood work Attending Provider: Johanna Cohen Primary Care Provider: Chandana Kenny Consulting Providers: Alina Piedra Instructions Patient Instructions: Paracentesis Dc Additional Instructions / Restrictions: You will be followed up by palliative care team Discharge Orders/Prescriptions Prescriptions: New acetylcysteine 200 mg/mL (20 %) Solution 1,200 mg PO BID 30 Days Qty: 360 RF: 0 Continued furosemide [Lasix] 40 mg Tablet 40 mg PO DAILY RF: 0 loperamide 2 mg Capsule 2 mg PO TID RF: 0 hydrocodone-acetaminophen 5-325 mg Tablet 1 tab PO BID PRN (Reason: Pain) RF: 0 spironolactone [Aldactone] 100 mg Tablet 100 mg PO DAILY RF: 0 omeprazole 40 mg Capsule,Delayed Release(Dr/Ec) 40 mg PO DAILY RF: 0 temazepam 15 mg Capsule 15 mg PO QHS PRN (Reason: Sleep) RF: 0 finasteride 5 mg tablet 5 mg PO DAILY RF: 0 potassium chloride 20 mEq Tablet Extended Release 20 meq PO DAILY RF: 0 lactulose 10 gram/15 mL solution 20 g PO BID RF: 0 Referrals / Follow Up: Jaswinder Lopez DO [STAFF PHYSICIAN] - 02/09/22 4:00 pm Chandana Kenny DO [Primary Care Provider] - 02/08/22 3:15 pm Disposition Disposition (needs filled in before D/C Order can be placed): Home, Self Care Charges/Coding Visit Charges Inpatient E&M: 51804 Disch Hosp
--- NOTE | 2022-02-01 14:22 | CASEMGMT ---
Pt states no concerns with going home at discharge today. Pt/ex- voice no further questions/concerns/needs. SStdarby HUBER CM
== END 2022-02-01 14:36 | disposition home or self-care (01) | DRG 872 ==
LOC: ED 14:53 → PCU 01-31 07:10
PROVIDERS: Internal Medicine Gastroenterology; Radiology Diagnostic Radiology; Admitting Provider Student in an Organized Health Care Education/Training Program; Emergency Provider Emergency Medicine; PCP Family Medicine; Visit Provider Internal Medicine
DX: A41.9 Sepsis, unspecified organism (principal); N17.9 Acute kidney failure, unspecified; E87.2 Acidosis; E87.1 Hypo-osmolality and hyponatremia; K56.7 Ileus, unspecified; C22.0 Liver cell carcinoma; R18.8 Other ascites; N39.0 Urinary tract infection, site not specified; I95.9 Hypotension, unspecified; K74.60 Unspecified cirrhosis of liver; E11.9 Type 2 diabetes mellitus without complications; B95.61 Methicillin susceptible Staphylococcus aureus infection as the cause of diseases classified elsewhere; E80.7 Disorder of bilirubin metabolism, unspecified; N40.0 Benign prostatic hyperplasia without lower urinary tract symptoms; Z20.822 Contact with and (suspected) exposure to COVID-19; R79.1 Abnormal coagulation profile; Z66 Do not resuscitate; Z91.19 Patient's noncompliance with other medical treatment and regimen; Z79.899 Other long term (current) drug therapy; Z92.21 Personal history of antineoplastic chemotherapy; Z87.891 Personal history of nicotine dependence
CPT/HCPCS: 36415; 49083; 71045; 74018; 74176; 74181; 74183; 80053; 80202; 81001; 82140; 82248; 83605; 83615; 84145; 84484; 85025; 85610; 85652; 85730; 86140; 87040; 87070; 87075; 87077; 87086; 87088; 87186; 87205; 87428; 89050; 93005; 97162; 97165; 97802; 99285; A9575; J7030; J7040; J7050; P9047; A4216; J0696; J2405